=== PATIENT | female | born 1935 | race Caucasian/White ===

== ENCOUNTER 2016-11-02 18:19 | Inpatient (IN) | payer OTHER ==
[2016-11-02] MEDS ORDERED: ASPIRIN PO STA (18:31)
[2016-11-02] MEDS ORDERED: NITROGLYCERIN SL PRN (18:31)
[2016-11-02] MEDS ORDERED: CARDIZEM IV ONE (19:19)
--- NOTE | 2016-11-02 19:25 | PROVIDER DOCUMENTATION ---
Addendum entered and electronically signed by Gaye Ervin Scribe 11/02/16 23: 12: EKG Interpretation - EKG Time of EKG reading by physician:: 22:08 EKG Read and Signed by:: Michael Nunez EKG Interpretation (*Must complete 3 of following elements*): Abnormal Rate: 136 Rhythm: [place] fibrillation with RVR Original Note: HPI-Chest Pain - General Chief Complaint: Chest Pain Stated Complaint: DIZZY, WEAK, CP, SLIGHT EDEMA IN HANDS Time Seen by Provider: 11/02/16 18:31 Source: patient Allergies/Adverse Reactions: Patient Allergies Allergy/AdvReac Type Severity Reaction Status Date / Time No Known Allergies Allergy Verified 12/06/15 14:58 Home Medications: Home Medication List Medication Instructions Recorded Confirmed Last Taken Type Hydrocodone/Acetaminophen [[place] 1 each PO PRN PRN 09/27/15 11/02/16 11/02/16 15 :00 History 10-325 Tablet] Levothyroxine [Synthroid] 0.1 mg PO DAILY 09/27/15 11/02/16 11/02/16 08:00 History Metoprolol [Lopressor] 50 mg PO QAM 09/27/15 11/02/16 11/02/16 08:00 History Mirtazapine [Remeron] 15 mg PO QAM 09/27/15 11/02/16 11/02/16 08:00 History Furosemide [Lasix] 40 mg PO QAM 11/02/16 11/02/16 11/02/16 08:00 History LISINOpril [Prinivil] 5 mg PO QAM 11/02/16 11/02/16 11/02/16 08:00 History - History of Present Illness-CP Location: reports: substernal Chest Pain Radiation: reports: no radiation Quality of Pain: reports: aching Severity in ED: mild Onset/Duration: 3 days ago Timing: intermittent Context/Activities at Onset: reports: none Modifying Factors: improves with: nothing Associated Symptoms: reports: dizziness Aspirin Treatment Today: 325 mg x 1 Similar Symptoms Previously?: No Recently Seen Here or By Another Healthcare Provider: No Review of Systems - Adult - REVIEW OF SYSTEMS - ADULT Constitutional: denies: chills, fever Eyes: reports: no symptoms reported Ears, Nose, Mouth & Throat: reports: no symptoms reported Cardiovascular: reports: chest pain. denies: palpitations Respiratory: denies: cough, shortness of breath Gastrointestinal: denies: abdominal pain, nausea, vomiting Genitourinary: reports: no symptoms reported Musculoskeletal: reports: no symptoms reported Integumentary: reports: no symptoms reported Neurological: reports: dizziness/vertigo. denies: headache/migraines Psychiatric: reports: no symptoms reported Endocrine: reports: no symptoms reported Hematologic/Lymphatic: reports: no symptoms reported Allergic/Immunologic: reports: no symptoms reported All Other Systems: Reviewed and Negative Past History - Adult - PAST MEDICAL HISTORY-ADULT Review of Records: reports: Nursing Assessment Review, Medications Reviewed Major Childhood Illnesses: reports: denies history Cardiovascular: reports: HTN Respiratory: reports: denies history Gastrointestinal: reports: denies history Obstetrical/Gynecological: reports: denies history Genitourinary: reports: denies history Musculoskeletal: reports: chronic pain Neurological: reports: Alzheimer's, dementia Endocrine/Immune: reports: denies history Other Conditions: reports: denies history - PRIOR SURGERIES/PROCEDURES Surgical/Procedure History: reports: none - IMMUNIZATION STATUS Childhood Immunizations: See Nurse Assessment Flu Vaccine: See Nurse Assessment Physical Exam-General - PHYSICAL EXAM-ADULT Initial Vital Signs Reviewed: Yes - CONSTITUTIONAL General Appearance: appears well, alert, no apparent distress - RESPIRATORY Respiratory: chest non-tender, lungs clear, normal breath sounds - CARDIOVASCULAR Cardiovascular: normal peripheral pulses, no edema, tachycardia - MUSCULOSKELETAL Extremity: normal inspection - SKIN Integumentary: normal color, normal turgor, warm/dry - PSYCHIATRIC Psych/Mental Status: normal mood/affect, normal thought content, normal thought process, oriented x 3 Progress - PLAN OF CARE/RESULTS Progress/Plan/Lab Results: plan of care: imaging, labs, medications, EKG Laboratory Tests 11/02/16 11/02/16 11/02/16 19:30 19:30 19:30 WBC 21.25 H RBC 3.89 L Hgb 12.8 Hct 37.3 MCV 95.9 MCH 32.9 H MCHC 34.3 RDW Std Deviation 14.4 Plt Count 244 MPV 9.5 Immature Gran % (Auto) 0.8 H Neut % (Auto) 88.0 H Lymph % (Auto) 3.8 L [place] % (Auto) 7.2 Eos % (Auto) 0.0 Baso % (Auto) 0.2 Immature Gran # (Auto) 0.18 H Neut # (Auto) 18.67 H Lymph # (Auto) 0.80 L [place] # (Auto) 1.54 H Eos # (Auto) 0.01 Baso # (Auto) 0.05 PT INR PTT (Actin FS) Sodium 124 L Potassium 4.2 Chloride 84 L Carbon Dioxide 22 L Anion Gap 18 BUN 50 H Creatinine 3.6 H Estimated GFR/1.73 m2 12 BUN/Creatinine Ratio 14 Glucose 139 H Calculated Osmolality 265 Calcium 7.9 L Magnesium 2.1 Total Bilirubin 0.71 AST 20 ALT 15 Alkaline Phosphatase 84 Creatine Kinase 131 Troponin T Dtb-P-Wqwzlstgsap Pept 80262 H Total Protein 6.3 Albumin 3.1 L Globulin 3.2 Albumin/Globulin Ratio 1.0 11/02/16 11/02/16 19:30 19:30 WBC RBC Hgb Hct MCV MCH MCHC RDW Std Deviation Plt Count MPV Immature Gran % (Auto) Neut % (Auto) Lymph % (Auto) [place] % (Auto) Eos % (Auto) Baso % (Auto) Immature Gran # (Auto) Neut # (Auto) Lymph # (Auto) [place] # (Auto) Eos # (Auto) Baso # (Auto) PT 11.2 INR 1.06 PTT (Actin FS) 33.1 Sodium Potassium Chloride Carbon Dioxide Anion Gap BUN Creatinine Estimated GFR/1.73 m2 BUN/Creatinine Ratio Glucose Calculated Osmolality Calcium Magnesium Total Bilirubin AST ALT Alkaline Phosphatase Creatine Kinase Troponin T 0.044 Uwn-K-Vmdufxxjhhi Pept Total Protein Albumin Globulin Albumin/Globulin Ratio Orders Category Date Time Status Cardiac Monitoring DIRECTED Care 11/02/16 18:32 Active Saline Loc NOW Care 11/02/16 18:32 Active CHEST-2 VIEWS [RAD] Stat Exams 11/02/16 18:32 Taken CBC WITH ELECTRONIC DIFF [HEME] Stat Lab 11/02/16 19:30 Completed CK PROFILE [SP CHEM] Stat Lab 11/02/16 19:30 Completed COMPREHENSIVE METABOLIC PANEL [CHEM] Stat Lab 11/02/16 19:30 Completed MAGNESIUM [CHEM] Stat Lab 11/02/16 19:30 Completed PRO B-NATRIURETIC PEPTIDE Stat Lab 11/02/16 19:30 Completed PROTIME WITH INR [COAG] Stat Lab 11/02/16 19:30 Completed PTT [COAG] Stat Lab 11/02/16 19:30 Completed TROPONIN T Stat Lab 11/02/16 19:30 Completed Aspirin Med 11/02/16 18:31 Discontinued 325 mg PO STAT STA Diltiazem [Cardizem] Med 11/02/16 19:19 Discontinued 20 mg IV NOW ONE Nitroglycerin Sl [Nitroglycerin] Med 11/02/16 18:31 Active 0.4 mg SL Q5M PRN PRN EKG [EKG] Stat Ther 11/02/16 18:22 Ordered EKG [EKG] Stat Ther 11/02/16 19:34 Ordered Vital Signs - 24 hr 11/02/16 11/02/16 11/02/16 19:10 19:33 20:07 Temperature 97.4 F L Pulse Rate 151 H 85 90 Respiratory 20 16 20 Rate Blood Pressure 131/92 102/73 99/72 O2 Sat by Pulse 93 L 94 L Oximetry 11/02/16 20:43 Temperature Pulse Rate 90 Respiratory 20 Rate Blood Pressure 108/77 O2 Sat by Pulse 96 Oximetry Pt/family given results. Pt will be admitted to the hospitalist group. PT/ Family in agreement with plan of care. - EKG 1 Time of EKG reading by physician:: 19:13 EKG Read and Signed by:: Michael Nunez EKG Interpretation (*Must complete 3 of following elements*): Abnormal Rate: 142 Rhythm: atrial fibrillation with RVR [place]: left 2 Time of EKG reading by physician:: 19:38 EKG Read and Signed by:: Michael Nunez EKG Interpretation (*Must complete 3 of following elements*): Abnormal Rate: 86 Rhythm: atrial fibrillation [place]: left - CONSULTS/PCP/HOSPITALIST Notification #1 *Consult/PCP/Hospitalist*: Dr. De Leon-hospitalist Time Discussed: 20:31 Consult Disposition: Will see in ED, Admit Departure - Departure Time of Disposition Order: 20:52 DIAGNOSIS: Weakness, Dehydration, Renal insufficiency A-fib Qualifiers: Atrial fibrillation type: unspecified Qualified Code(s): I48.91 - Unspecified atrial fibrillation Disposition: ADMITTED INPATIENT 09 Certified Medical Emergency: Emergent Condition: Stable Referrals: Dagoberto Huerta MD [Primary Care Provider] - Attestation - Scribe Verification/Attestation Scribe:: Gaye Ervin Acting as Scribe for:: Michael Nunez Scribe documention review:: This chart was documented by a scribe and accurately reflects the service the provider performed and the decisions made by the provider. Physician Attestation - Physician Attestation I, the provider, attest to the following statement:: Michael Nunez Physician documentation Attestation:: This documentation recorded by the scribe accurately reflects the service I personally performed and the decisions made by me.
[2016-11-02 19:39] LABS: BASO% 0.2 % (0.0-0.8); EOS# 0.01 X1000 (0.0-0.7); HEMATOCRIT 37.3 % (37.0-47.0); HEMOGLOBIN 12.8 g/dL (12.0-16.0); IMM GRAN# 0.18 X1000 (0.0-0.04); IMM GRAN% 0.8 % (0.0-0.5); LYMPH% 3.8 % (20.5-51.1); MANUAL DIFF NEEDED? NO; MCH 32.9 PG (27-31); MCHC 34.3 g/dL (33-37); MCV 95.9 FL (81-99); MONO# 1.54 X1000 (0.11-0.59); MONO% 7.2 % (1.7-9.3); MPV 9.5 FL (7.4-10.4); PLT 244 X1000 (130-400); RBC 3.89 XMIL (4.2-5.4)
[2016-11-02 19:46] LABS: INR 1.06; PROTIME 11.2 Seconds (9.2-11.7); PTT 33.1 Seconds (22.0-36.0)
[2016-11-02 20:03] LABS: ALBUMIN 3.1 g/dL (3.5-5.0); CALCIUM 7.9 mg/dL (8.8-10.2); MAGNESIUM 2.1 mg/dL (1.5-2.7); POTASSIUM 4.2 mmol/L (3.5-5.1); TOTAL BILIRUBIN 0.71 mg/dL (0.20-1.00); TOTAL PROTEIN 6.3 g/dL (6.3-8.3)
[2016-11-02] MEDS ORDERED: ROCEPHIN 1 GM/NS 50 ML IV SCH (21:45)
[2016-11-02] MEDS ORDERED: LASIX IV SCH (21:45)
[2016-11-02] MEDS ORDERED: THIAMINE 100 MG in NS 50 ML IV ONE (21:58)
--- NOTE | 2016-11-02 21:59 | HISTORY AND PHYSICAL ---
PRIMARY CARE PROVIDER: Dr. Dagoberto Huerta. CHIEF COMPLAINT: Heart racing and shortness of breath. HISTORY OF PRESENTING ILLNESS: An 81-year-old female with a history of congestive heart failure, hypertension and dementia who was brought to the emergency department due to patient having more shortness of breath and heart racing. The patient was seen in the ER. She was found to be in atrial fibrillation with RVR. She was given IV Cardizem and the rate decreased. She seemed to somewhat improve, her shortness of breath was better. At time my examination she denied having any headache, visual changes, fevers, chills, nausea, vomiting, diarrhea, hemoptysis, melena, but complained of some chest discomfort, shortness of breath and not feeling well. PAST MEDICAL HISTORY: Include congestive heart failure, hypertension, hyperlipidemia, dementia. PAST SURGICAL HISTORY: Hysterectomy, appendectomy. ALLERGIES: No known drug allergies. CURRENT MEDICATIONS: As in the MAR. SOCIAL HISTORY: She is a former smoker. Admits to alcohol use nightly mostly mixed drinks. Denies any illicit drug use. She is . Lives with her spouse. FAMILY HISTORY: No history of coronary disease. REVIEW OF SYSTEMS: Twelve point review of systems is as in HPI. Other systems negative. PHYSICAL EXAMINATION: GENERAL: Cooperative, friendly female. She is resting more comfortably now. VITAL SIGNS: Temperature 97.4 degrees, pulse 151, respiration 20, blood pressure 131/92, saturating 92%. HEENT: Atraumatic, normocephalic. Extraocular movements intact. PERRLA. NECK: No masses. CHEST: Bibasilar rales. CARDIOVASCULAR: Tachycardic and irregular. ABDOMEN: Soft. Positive bowel sounds. EXTREMITIES: Trace edema. NEURO: She is awake, alert, oriented x2. : No bladder distention. SKIN: Warm. LABORATORIES AND STUDIES: WBCs 21.25, hemoglobin 12.8, hematocrit 37.3, platelets 244,000. Sodium 124, potassium 4.2, chloride 84, CO2 is 22, BUN is 50, creatinine 3.6, glucose is 139, Pro- BNP is 26,384. ASSESSMENT: A 81-year-old female with a history of congestive heart failure, hypertension and dementia was brought to the emergency department due to worsening shortness of breath. She was evaluated in the ER, she was found to be in atrial fibrillation with RVR. She was given IV Cardizem and her rate had improved. Patient will need hospitalization for further management . 1. Atrial fibrillation with rapid ventricular response. 2. Acute congestive heart failure exacerbation unspecified. 3. Leukocytosis. 4. Chronic alcoholism. 5. Hyponatremia. 6. Acute renal failure. PLAN: 1. We will admit patient to [facility]. 2. Continue monitor patient on telemetry. Check echocardiogram and consult Cardiology. 3. May need to restart patient on Cardizem drip if rates not controlled. 4. Continue with gentle diuresis and check echocardiogram. 5. Check blood cultures. Start patient on IV antibiotics. 6. Give patient a banana bag slowly. 7. Monitor electrolytes. 8. We will monitor renal function. 9. Put patient on DVT prophylaxis with SCD and heparin. 10. We will continue to follow and reassess.
[2016-11-02] MEDS: CARDIZEM 100 MG/NS 100 ML IV SCH ×2 (22:19→23:20)
--- NOTE | 2016-11-03 01:00 | Diag Imaging Result Document ---
PROCEDURE NAME: CHEST-2 VIEWS - 11/02/2016 PA AND LATERAL RADIOGRAPH OF THE CHEST: COMPARISON: 12/06/2015. FINDINGS: There is stable eventration of the right hemidiaphragm. There is stable mild atelectasis versus scarring at the right lung base. There is stable mild scarring at the left mid lung zone. The lungs are clear otherwise. There is no definite pleural fluid collection. Cardiac silhouette is grossly unremarkable. IMPRESSION: Stable right basilar scarring and/or atelectasis and stable mild left mid lung zone scarring.
[2016-11-03 05:01] LABS: BASO% 0.1 % (0.0-0.8); EOS# 0.03 X1000 (0.0-0.7); EOS% 0.2 % (0.0-10.0); HEMATOCRIT 33.4 % (37.0-47.0); HEMOGLOBIN 11.5 g/dL (12.0-16.0); IMM GRAN# 0.11 X1000 (0.0-0.04); IMM GRAN% 0.7 % (0.0-0.5); LYMPH# 0.54 X1000 (1.2-3.4); LYMPH% 3.7 % (20.5-51.1); MANUAL DIFF NEEDED? YES; MCH 32.9 PG (27-31); MCHC 34.4 g/dL (33-37); MCV 95.4 FL (81-99); MONO# 1.04 X1000 (0.11-0.59); MONO% 7.1 % (1.7-9.3); MPV 9.6 FL (7.4-10.4); NEUT% 88.2 % (42.2-75.2); PLT 202 X1000 (130-400)
[2016-11-03 05:24] LABS: BANDS 6 % (0-1); LYMPHS 4 % (21-51); MONO 6 % (1-9)
[2016-11-03 05:35] LABS: CALCIUM 7.1 mg/dL (8.8-10.2); POTASSIUM 3.4 mmol/L (3.5-5.1)
[2016-11-03] MEDS: CARDIZEM 100 MG/NS 100 ML IV SCH ×4 (06:17→17:39)
[2016-11-03] MEDS ORDERED: CARDIZEM PO SCH (08:00)
[2016-11-03] MEDS: SYNTHROID PO SCH (08:50)
[2016-11-03] MEDS: LOPRESSOR PO SCH (08:50)
[2016-11-03] MEDS: HEPARIN SUBQ SCH ×2 (09:00→21:44)
[2016-11-03] MEDS ORDERED: REMERON PO SCH (09:00)
[2016-11-03] MEDS ORDERED: NS 500 ML ONE (09:47)
[2016-11-03] MEDS ORDERED: NS 1,000 ML ONE (11:29)
[2016-11-03] MEDS: NS 1,000 ML IV SCH (12:45)
--- NOTE | 2016-11-03 14:51 | PROGRESS NOTE ---
DATE: 11/03/2016 SUBJECTIVE: The patient is doing fine. Denies any chest pain, any difficulty in breathing, or palpitations. OBJECTIVE: Vital Signs: Temperature 98.5 degrees, heart rate 68, respiratory 14, blood pressure 102/61, O2 saturation 93% 2 L nasal cannula. General Examination: This is an 81-year-old, female lying in bed, in no acute distress. HEENT: Head is normocephalic, atraumatic. Anicteric sclerae and pale conjunctivae. Mucous membranes dry. Neck: Supple. No JVD noted. No carotid bruits. No lymphadenopathy. No thyromegaly. Cardiovascular: S1, S2 heard. Irregularly irregular. No murmurs, gallops, or rubs. Respiratory: Clear bilaterally to auscultation. No work of breathing or using accessory muscles. Abdomen: Soft. Nontender to palpation. Bowel sounds present. No organomegaly. Extremities: No clubbing, cyanosis, or edema. Peripheral pulses present in both legs. Neurological: Patient is alert and oriented x3. Able to move 4 extremities. Cranial nerves 2 through 12 grossly normal. LABORATORY DATA: White cell count 14.68, hemoglobin 11.5, hematocrit 33.4, platelets 202,000. Sodium 136, potassium 3.4, chloride 91, bicarbonate 21, BUN 51, creatinine 3.1. ASSESSMENT: 1. Atrial fibrillation with rapid ventricular response. 2. Acute kidney injury. 3. Congestive heart failure. 4. Leukocytosis. 5. Chronic alcoholism. 6. Hyponatremia. PLAN: The patient was admitted to the hospital because of shortness of breath and she was found to be in atrial fibrillation with RVR. Patient has been started on Cardizem drip and also we changed it to oral this morning. The patient she requires to be on that medication. The patient is going to be sent to [facility]. Cardiology has been consulted. An echo has been ordered. At this point, if they are planning to do any procedure like cardioversion today. In any case, we will put this patient on NPO since midnight. Also for acute kidney injury, her granddaughter who is a nurse reported that she was checked at her primary care's office a few months ago and the renal function was completely okay so we assume this problem is acute renal failure. Even though this patient has a history of congestive heart failure, we prefer to start gentle hydration with normal saline at 70 mL/hours and we are going to check definitely BMP daily. Actually today there was improvement of creatinine from 3.6 to 3.1. We will continue checking CMP daily. For CHF, I guess this condition is stable. I know that the proBNP is elevated but considering that this patient has renal dysfunction I do not know how accurate that number is. In any case, physical examination did not disclose volume overload because I did not find any lower extremity edema or crackles on physical examination. At this time we are going to hold any Lasix right now. Considering that she is requiring 2 L of oxygen by nasal cannula, we will continue with the same management. For hyponatremia, I expect better sodium with this normal saline. For leukocytosis, we have checked an x-ray which basically shows stable right basilar scarring or atelectasis but did not describe any infiltrate or pneumonia. Also the urine has not be checked. We are going to check that. She is not on any antibiotics right now and we are going to keep an eye on that.
[2016-11-03] MEDS: ZOSYN 2.25 GM/NS 50 ML IV SCH ×2 (15:49→21:43)
[2016-11-03 16:19] LABS: URINE SOURCE CLEAN CATCH
[2016-11-03 16:25] LABS: BILIRUBIN URINE NEGATIVE (NEGATIVE); BLOOD URINE MODERATE (NEGATIVE); GLUCOSE URINE NEGATIVE (NEGATIVE); LEUKOCYTES URINE LARGE (NEGATIVE); NITRITE URINE NEGATIVE (NEGATIVE); PROTEIN URINE 100 mg/dL (NEGATIVE); SP GRAVITY URINE 1.013; TURBIDITY URINE TURBID (CLEAR); UROBILINOGEN URINE NORMAL (NORMAL)
[2016-11-03 16:26] LABS: URINE MICRO REVIEW NEEDED? YES
[2016-11-03 16:30] LABS: UR EPITHELIAL CELLS <10 /HPF (<10); URINE BACTERIA 4+ /HPF; URINE CULTURE NEEDED? YES; URINE WBC TNTC /HPF (<10)
[2016-11-03 16:37] LABS: URINE CASTS GRANULAR PRESENT; URINE CRYSTALS NONE SEEN; URINE SMALL ROUND CELLS RENAL PRESENT
[2016-11-03 16:38] LABS: COLOR YELLOW
[2016-11-03] MEDS: REMERON PO SCH (21:44)
[2016-11-04] MEDS: NS 1,000 ML IV SCH ×2 (03:18→16:36)
[2016-11-04] MEDS: ZOSYN 2.25 GM/NS 50 ML IV SCH ×4 (03:18→21:13)
[2016-11-04] MEDS: CARDIZEM 100 MG/NS 100 ML IV SCH ×2 (05:46→11:21)
[2016-11-04 05:53] LABS: BASO% 0.1 % (0.0-0.8); EOS# 0.02 X1000 (0.0-0.7); EOS% 0.1 % (0.0-10.0); HEMATOCRIT 35.4 % (37.0-47.0); HEMOGLOBIN 12.1 g/dL (12.0-16.0); IMM GRAN# 0.17 X1000 (0.0-0.04); IMM GRAN% 1.1 % (0.0-0.5); LYMPH# 0.66 X1000 (1.2-3.4); LYMPH% 4.3 % (20.5-51.1); MANUAL DIFF NEEDED? YES; MCH 32.5 PG (27-31); MCHC 34.2 g/dL (33-37); MCV 95.2 FL (81-99); MONO# 1.15 X1000 (0.11-0.59); MONO% 7.6 % (1.7-9.3); MPV 9.7 FL (7.4-10.4); NEUT% 86.8 % (42.2-75.2); PLT 232 X1000 (130-400); RBC 3.72 XMIL (4.2-5.4)
[2016-11-04 06:00] LABS: CALCIUM 7.6 mg/dL (8.8-10.2)
[2016-11-04 06:01] LABS: BANDS 4 % (0-1); LYMPHS 4 % (21-51); MONO 6 % (1-9)
[2016-11-04] MEDS: SYNTHROID PO SCH (06:22)
--- NOTE | 2016-11-04 06:40 | EKG Report ---
Test Performed on : 11/02/2016 10:08:37 PM Test Reason : RYTHEM CHANGE Blood Pressure : / mmHG Vent. Rate : 136 BPM Atrial Rate : 153 BPM P-R Int : 000 ms QRS Dur : 100 ms QT Int : 334 ms P-R-T Axes : 000 -38 063 degrees QTc Int : 502 ms Atrial fibrillation. with rapid ventricular response. Left axis deviation T wave abnormality, consider inferior ischemia Abnormal ECG When compared with ECG of 02-NOV-2016 19:38, (Unconfirmed) Vent. rate has increased BY 50 BPM T wave inversion now evident in Inferior leads Unconfirmed Result
[2016-11-04] MEDS: MORPHINE IV PRN ×3 (08:17→21:14)
[2016-11-04] MEDS: LOPRESSOR PO SCH (08:17)
[2016-11-04] MEDS: HEPARIN SUBQ SCH ×2 (08:17→21:13)
--- NOTE | 2016-11-04 11:53 | PROGRESS NOTE ---
DATE: 11/04/2016 SUBJECTIVE: The patient is doing fine, although she complains of general malaise. No chest pain. No fever or chills. OBJECTIVE: Vital Signs: Temperature 97.4 degrees, heart rate 98, respiratory rate 14, blood pressure 92/56, O2 saturation 99% on 2 L nasal cannula. General examination: This is an 81- year-old female lying in bed, in no acute distress. HEENT: Head is normocephalic, atraumatic. Anicteric sclerae. Pale conjunctivae. Mucous membranes moist. Neck: Supple. No JVD noted. No carotid bruits. No lymphadenopathy. No thyromegaly. Cardiovascular: S1, S2 heard. Irregularly irregular but no murmurs, gallops, or rubs. Respiratory: Clear bilaterally to auscultation. No work of breathing or using accessory muscles. Abdomen: Soft. Nontender to palpation. Bowel sounds present. No organomegaly. Extremities: No clubbing, cyanosis, or edema. Peripheral pulses present in both legs. Neurological: Patient is alert and oriented x3. Able to move 4 extremities. Cranial nerves 2 through 12 grossly normal. LABORATORY DATA: White cell count 15.21, hemoglobin 12.1, hematocrit 35.4, platelets 232,000. Sodium 136, potassium 3.0, chloride 89, bicarbonate 21, BUN 51, creatinine 3.6. ASSESSMENT: 1. Atrial fibrillation with rapid ventricular response. 2. Acute kidney injury. 3. Urinary tract infection. 4. Gram-negative rods bacteremia. 5. Leukocytosis. 6. Hyponatremia. 7. Chronic alcoholism. PLAN: Patient was admitted to the hospital because she was not feeling good and she was found to be in atrial fibrillation with RVR. Right now she is in the [facility] with a Cardizem drip. Cardiology has been consulted but they have not seen her yet. Will see if they are planning to do a cardioversion or not. She is not on anticoagulation, just on DVT prophylaxis. Also something for this patient is this acute kidney injury. As per daughter who is a nurse, she was checked a few months ago and the renal function was okay. In any case, we have consulted Dr. Estrada from nephrology and we will see what he has to say. For UTI, we know that this patient has dirty urine and the blood cultures are showing gram-negative rods. So she was started on Zosyn and we will wait for the results of the final cultures. For hyponatremia, patient is receiving IV fluids but it seems like it is not helping very much. We will continue checking BMP daily. [email or web address]
--- NOTE | 2016-11-04 14:11 | CONSULTATION ---
DATE OF CONSULTATION: 11/04/2016 REQUESTING PHYSICIAN: Hospitalist Service REASON FOR CONSULTATION: Shortness of breath, palpitations. HISTORY OF PRESENT ILLNESS: Ms. Saenz is an 81-year-old female. The patient presented to the hospital for evaluation on 11/02/2016 at about 6:30 p.m. because she had not been feeling well for 2 days. The patient had complained of increasing fatigue, weakness and profuse diaphoresis with vague chest discomfort. The patient apparently had to attend her grandson's wedding on Friday, and right after the wedding, she was sweating profusely and was so seemingly ill that the granddaughter recommended bring her to the hospital. In the ER, they did a chest x-ray that shows right basilar scarring and/or atelectasis and stable left midlung zone scarring. The patient received blood work that showed a white count of 21,250, hemoglobin 12.8. Sodium was 124, potassium 4.2, BUN was 50, creatinine 3.6. The patient received urine and blood cultures. The urine culture is growing gram- negative beck. The blood culture is also growing gram-negative rods. The patient appears to have septicemia. She has been placed on broad spectrum antibiotics including piperacillin/tazobactam (Zosyn) every 6 hours. She was found in atrial fibrillation with a rapid response, and they have initiated IV Cardizem. The patient is still going somewhat fast, but she is feeling much better. We are seeing her on 11/04/2016. She is not having any chest pain right now. She is having some difficulty swallowing. This appears to be new. She has some discomfort when swallowing. PAST MEDICAL HISTORY: Positive for hypertension. She has been diagnosed with congestive heart failure in the past. She was seen at this hospital back in 11/2015. At that time, she received an echocardiogram which I read, and it showed mildly decreased ejection fraction in the order of 50% with segmental wall motion abnormalities suggesting coronary artery disease. She had pulmonary hypertension. At that time, her electrocardiogram showed sinus rhythm with no acute abnormalities. She did seem to have a pattern of left anterior fascicular block, possible old inferior scar or septal scar. She has been a smoker in the past. PAST SURGICAL HISTORY: She has had hysterectomy, appendectomy, bladder suspension. She has had biopsy of lymph node from the left side of the neck. She has complained of chronic back pains and neck pains. 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 SOCIAL HISTORY: She is to her second for 10 to 15 years. She is retired, lives at home. She has been a tobacco user in the past. She does drink 2 mixed drinks every day. FAMILY HISTORY: Noncontributory. ALLERGIES: Negative. HOME MEDICATIONS: At the time of this admission included mirtazapine 15 mg at bedtime, metoprolol 50 every day, Synthroid 0.1 mg daily, lisinopril 5 mg daily, hydrocodone daily, furosemide 40 mg daily. REVIEW OF SYSTEMS: Really noncontributory other than the patient's short-term memory is deteriorating lately. She has not had any other major issues. She does not recall having any previous serious heart condition in the past. PHYSICAL EXAMINATION: Blood pressure is 122/73, pulse 131, temperature 98.6, respirations 20. She is awake, alert, follows commands. She appears to be oriented. HEENT is unremarkable. Chest shows some crepitans. Heart sounds are irregularly irregular, distant. Abdomen is nontender. No masses or hepatomegaly. Extremities showed decreased pulses. There is no peripheral edema. Neurologic: She moves all 4 extremities and follows commands. She is cooperative. DIAGNOSTIC DATA: Her telemetry right now shows atrial fibrillation with a rapid response. Today, white count is 15,210, hemoglobin is 12.1. Sodium is 126, potassium 4.0, BUN is 51, creatinine 3.6. Her C-reactive protein is 158.87 which is high, and sedimentation rate is 64, indicating some acute inflammatory process. IMPRESSION: 1. The patient presented with what appears to be a septicemia, probably arising from urinary source. Gram-negative rods are growing in the urine and in the blood. 2. Atrial fibrillation with rapid ventricular response. This is probably secondary to the metabolic stress. 3. Congestive heart failure which is probably acute diastolic on top of mild degree of chronic systolic left ventricular dysfunction. 4. Atypical chest discomfort, probably chest wall pain. 5. Hyponatremia. 6. Acute renal insufficiency. RECOMMENDATIONS: In addition to checking the acute inflammatory markers which we have done, we will keep her on Cardizem and beta blockers to control her heart rate. The septicemia needs to be managed by the primary service, and Nephrology has been consulted to address the issues of acute renal dysfunction. We will review the echocardiogram that was done today, and we will furnish additional advice. Thank you for the opportunity to participate in her evaluation.
[2016-11-04 14:39] LABS: URINE MICRO REVIEW NEEDED? NO; URINE SOURCE CATH
[2016-11-04 14:41] LABS: BILIRUBIN URINE NEGATIVE (NEGATIVE); BLOOD URINE MODERATE (NEGATIVE); COLOR YELLOW; GLUCOSE URINE NEGATIVE (NEGATIVE); LEUKOCYTES URINE LARGE (NEGATIVE); NITRITE URINE NEGATIVE (NEGATIVE); PROTEIN URINE 70 mg/dL (NEGATIVE); SP GRAVITY URINE 1.013; TURBIDITY URINE HAZY (CLEAR); UR EPITHELIAL CELLS <10 /HPF (<10); URINE BACTERIA NEGATIVE /HPF; URINE CULTURE NEEDED? YES; URINE RBC <10 /HPF (<10); URINE WBC TNTC /HPF (<10); UROBILINOGEN URINE NORMAL (NORMAL)
[2016-11-04 14:45] LABS: UR CREAT RANDOM 76.2 mg/dL (11-20); UR PROT RANDOM 74.5 mg/dL
--- NOTE | 2016-11-04 15:33 | ECHO REPORT ---
ORDER DATE: 11/03/2016 ECHOCARDIOGRAPHIC MEASUREMENTS: 1. Interventricular septum 1.1. Left ventricular posterior wall 1.1. Diastolic diameter 4.2. Left atrium 3.6. Aorta 3.0. 2. Normal left ventricular cavity size. Estimated ejection fraction of 45-50%. Atrial fibrillation was noted. Aortic valve leaflets are sclerosed. 3. Mitral valve was normal. Tricuspid valve was normal. Pulmonic valve was normal. 4. Peak velocity across aortic valve less than 2 m/sec. There is no aortic stenosis. There is trace aortic regurgitation. There is mild regurgitation. Peak velocity across tricuspid valve was 2.5 m/sec. 5. There is mild mitral regurgitation . 6. There is no pericardial effusion or obvious intracardiac mass or thrombus.
--- NOTE | 2016-11-04 16:52 | Diag Imaging Result Document ---
PROCEDURE NAME: US RENAL 2 (RETROPER) COMPLETE - 11/04/2016 RENAL ULTRASOUND: COMPARISON: None available. FINDINGS: The kidneys are grossly normal in echotexture with the right kidney measuring 8.5 cm and the left kidney measuring 10.6 cm in the greatest longitudinal axes. The right renal cortex measures up to 1 cm and the left renal cortex measures up to 1.3 cm in thickness. The urinary bladder is grossly unremarkable. IMPRESSION: Grossly unremarkable renal ultrasound.
[2016-11-04] MEDS: MUCINEX PO SCH (21:13)
[2016-11-04] MEDS: REMERON PO SCH (21:13)
--- NOTE | 2016-11-04 23:00 | CONSULTATION ---
DATE OF CONSULTATION: 11/04/2016 CONCLUSION: The patient has urosepsis as manifested by a positive blood cultures for gram negative rods in both the blood and the urine. She also has end-stage renal disease. RECOMMENDATIONS: I agree with the decision to treat the patient with Zosyn and to decrease the dose because of the patient's end-stage renal disease. It is my understanding the patient had a renal ultrasound today so that we can look to see if there is any obstruction to the kidneys and if there could be an abscess present in the kidneys or some other abnormality. Once the patient's Valdez catheter is out I would like to check her for a postvoid residual urine to make sure that she is emptying her bladder fully. If she is not emptying her bladder fully then she may be a candidate for intermittent catheterization or possibly some medication trial to see if they can increase her urination. The other treatment that could be done with the hope of trying to prevent urinary tract infections would be application of vaginal estrogen cream on a regular basis. DISCUSSION: The patient has dementia. She really was unable to provide a history. Most of it was taken from her granddaughter. Approximately 3-4 days ago the patient developed dyspnea, diaphoresis, weakness, anorexia, altered mental status, dysuria, urinary frequency and back and flank pain. She was admitted to the hospital. Here her CBC shows a white count of 15,210, hemoglobin is 12.1, platelet count is 232,000. Creatinine is 3.6. GFR is 12. Both blood and urine are growing gram negative rods as mentioned above, the chest x-ray shows stable bilateral scarring of the lungs. Renal ultrasound is pending. PAST MEDICAL HISTORY/REVIEW OF SYSTEMS: Central nervous system: Patient has dementia. She does not have paresis or seizures. Neck: No stiffness. Endocrine: Patient has thyroid disease but not diabetes. Bones, joints, muscles: She does not complain much of joint pain or muscle aches. Cardiac: She has atrial fibrillation now but she was not complaining of chest pain or palpitations. GI: She has a decrease in her appetite. She has not complained of abdominal pain or diarrhea. Genitourinary: She was going frequently and had back and flank pain. Neurologic: Patient had an altered mental status but now she is more alert and carries on coherent conversation. She does have a decrease in her memory though secondary to her dementia. The remainder of the review of systems was completed and was negative. CHILD CARE SPECIALIST HISTORY: She is a 3, para 3, AB 0. She has had a hysterectomy and it is not certain if she had a tubal ligation or not. PREVIOUS HOSPITALIZATIONS AND OPERATION: She has had labor and deliveries, a hysterectomy, possible tubal ligation, previous admission a year ago for urosepsis. She has had lymph node biopsies. MEDICAL DISEASES: Positive for hypertension, dementia, congestive heart failure, hypothyroidism, hyperlipidemia. INFECTIOUS DISEASE HISTORY: Positive for pneumonia, urosepsis approximately a year ago and sinusitis. FAMILY HISTORY: Positive for hypertension and stroke. SOCIAL HISTORY: The patient lives in [place] at the [facility]. She lives in a house boat. She is . She stopped smoking cigarettes about 60 years ago. She occasionally drinks an alcoholic beverage. She does not abuse drugs. ALLERGIES: Her chart lists no known drug allergies. HOME MEDICATIONS: Include she is on Remeron, Lopressor, Synthroid, Prinivil, hydrocodone and Lasix. PHYSICAL EXAMINATION: Vital signs: Temperature is 97.4 degrees, pulse 98, respirations 14, blood pressure 92/56, the patient's weight is listed as 138 pounds. General: This is a chronically ill- appearing, elderly female. She is in no acute distress. Head, eyes, ears, nose, and throat: She can hear my spoken words. She can see near objects. Neck: There was no meningismus. There appeared to be slight increase in the AP diameter of her chest. Lungs: There were scattered rhonchi. Cardiovascular: Heart rate was rapid and irregular. Abdomen: Soft and nontender. Neurologic: The patient was awake. She can move her extremities but was weak. There was no tremor. She had a marked decrease in her memory as regarding her medical illnesses. Integument: No rash noted. Thank you for the consult.
[2016-11-05] MEDS: ZOSYN 2.25 GM/NS 50 ML IV SCH (03:43)
[2016-11-05 05:23] LABS: MANUAL DIFF NEEDED? NO
[2016-11-05 05:28] LABS: BASO% 0.1 % (0.0-0.8); EOS# 0.12 X1000 (0.0-0.7); EOS% 0.8 % (0.0-10.0); HEMATOCRIT 30.6 % (37.0-47.0); HEMOGLOBIN 10.5 g/dL (12.0-16.0); IMM GRAN# 0.17 X1000 (0.0-0.04); IMM GRAN% 1.1 % (0.0-0.5); LYMPH# 0.77 X1000 (1.2-3.4); LYMPH% 5.2 % (20.5-51.1); MCH 32.8 PG (27-31); MCHC 34.3 g/dL (33-37); MCV 95.6 FL (81-99); MONO# 1.35 X1000 (0.11-0.59); MPV 9.6 FL (7.4-10.4); NEUT% 83.8 % (42.2-75.2); PLT 253 X1000 (130-400)
[2016-11-05 05:46] LABS: CALCIUM 7.6 mg/dL (8.8-10.2)
[2016-11-05] MEDS: NS 1,000 ML IV SCH ×2 (05:56→18:43)
[2016-11-05] MEDS: SYNTHROID PO SCH (06:03)
[2016-11-05] MEDS: KEFZOL 1 GM/D5W 50 ML IV SCH ×2 (06:54→18:15)
--- NOTE | 2016-11-05 07:29 | EKG Report ---
Test Performed on : 11/05/2016 06:46:53 AM Test Reason : atrial fibrillation Blood Pressure : / mmHG Vent. Rate : 121 BPM Atrial Rate : 136 BPM P-R Int : 000 ms QRS Dur : 102 ms QT Int : 324 ms P-R-T Axes : 000 -38 023 degrees QTc Int : 460 ms Atrial fibrillation. with rapid ventricular response. Left axis deviation Abnormal ECG When compared with ECG of 05-NOV-2016 06:46, (Unconfirmed) No significant change was found Confirmed by Michel Valdivia MD ([id number]) on 11/06/2016 9:19:23 PM
--- NOTE | 2016-11-05 08:52 | PROGRESS NOTE ---
DATE: 11/05/2016 CHIEF COMPLAINT: Shortness of breath, palpitations. SUBJECTIVE: The patient presented yesterday with increasing fatigue, shortness of breath. Today she is feeling much better. She is not having any pain. Her blood and urine are growing E. coli. This is consistent with a septicemic presentation. Her C-reactive protein was elevated at 158.87. Her sedimentation rate is 64. OBJECTIVE: Vital signs: Blood pressure 104/64, temperature 99.6, pulse 95, respirations 18. General: She is awake, alert, and oriented, in no distress. HEENT: Unremarkable. Chest: Slightly diminished breath sounds bilaterally, occasional rhonchi. Cardiac: Heart sounds are irregularly irregular without gallop or murmur. Abdomen: Nontender, soft, no masses, no hepatomegaly. Extremities: Good pulses, no edema. Neurological: She moves four extremities, follows commands. BLOOD WORK: Sodium 124, potassium 4.0, BUN 49, creatinine 3.5. Albumin is down to 2.0. Phosphorus is 2.4. White count 14,940, hemoglobin 10.5. IMPRESSION: 1. Patient presented to the hospital truly with a picture of septicemia, gram-negative E. coli. 2. Acute renal failure. 3. Paroxysmal atrial fibrillation with rapid response. 4. Congestive heart failure exacerbation. This is mostly diastolic dysfunction on top of mild chronic systolic dysfunction. RECOMMENDATION: Aggressive management of her infection is required. Infectious Disease has been consulted. From cardiology viewpoint, we will continue our present course of action. The patient seems to be improving. We will make further adjustments as we deem appropriate based on her septic condition. Thank you again for the opportunity to participate in her evaluation. Best regards.
[2016-11-05] MEDS: HEPARIN SUBQ SCH ×2 (09:05→21:03)
[2016-11-05] MEDS: LOPRESSOR PO SCH (09:05)
[2016-11-05] MEDS: MUCINEX PO SCH ×2 (09:05→20:51)
[2016-11-05] MEDS: CARDIZEM 100 MG/NS 100 ML IV SCH (09:06)
[2016-11-05] MEDS ORDERED: DULCOLAX PR ONE (09:34)
--- NOTE | 2016-11-05 12:10 | PROGRESS NOTE ---
DATE: 11/05/2016 PRESENT ILLNESS: The patient has an Escherichia coli urinary tract infection and associated bacteremia. MEDICATIONS: The patient currently is on Zosyn. PHYSICAL EXAMINATION: Vital Signs: Temperature is 99.6 degrees, pulse 95, respirations 18, blood pressure 104/64. General: This is an ill-appearing, elderly female. She is in no acute distress. Lungs: Clear to auscultation. Cardiovascular: Heart rate is rapid and irregular. Abdomen and flank: Soft and nontender. Genitalia: Patient has a Valdez catheter in place. LABORATORY AND X-RAY STUDIES: Blood and urine cultures are growing E coli. The CBC for today shows a white count of 14,940, hemoglobin 10.5, and platelet count 253,000. Creatinine is 3.5. The GFR is 12. As mentioned above, the first blood and urine cultures are growing E coli. Repeat blood cultures are pending thus far. ASSESSMENT AND PLAN: Patient has Escherichia coli urinary tract infection and bacteremia. I have changed the patient to Ancef and have reduced the dose of the antibiotic because of the patient's end-stage renal disease. Once the patient's Valdez catheter is removed, I will order a bladder scan on her to see if she is able to empty her bladder well. COMORBIDITIES: The patient's comorbidities: She is elderly. She does have dementia and congestive heart failure.
[2016-11-05] MEDS: MORPHINE IV PRN ×2 (12:53→17:02)
--- NOTE | 2016-11-05 14:46 | PROGRESS NOTE ---
DATE: 11/05/2016 SUBJECTIVE: This patient states that she is doing better. She is not complaining of chest pain or abdominal pain. No shortness of breath. She has been having constipation and generalized weakness. Probably this patient should go to a rehab center. OBJECTIVE: Vital Signs: Temperature 98.5 degrees, pulse 114, respiratory rate 22, blood pressure 111/48, O2 saturation 100% on 2 L of nasal cannula. HEENT: Head normocephalic. No trauma. PERRLA. Neck: Supple. No JVD. No masses. Central trachea. Cardiovascular: Irregularly irregular rate and rhythm. No murmurs. Chest: Clear to auscultation. No wheezing. No rales. Abdomen: Soft, nontender, nondistended. No hepatosplenomegaly. Neurological: The patient is alert and oriented x3. She is able to move all 4 extremities. She has generalized weakness. LABORATORY DATA: WBC 14.9, hemoglobin 10.5, hematocrit 30.6, platelets 253,000. Sodium 124, potassium 4, chloride 92, bicarbonate 19, BUN 49, creatinine 3.5, calcium 7.6, phosphorus 2.4. ASSESSMENT AND PLAN: 1. Atrial fibrillation with rapid ventricular response. Cardiology Department is on board. She is still getting IV Cardizem. She feels better. She is not complaining of chest pain or palpitations at this moment. No shortness of breath. We will continue to monitor. 2. Acute kidney injury. I checked back her creatinine, and on November 2015 the creatinine was between 1.1 and 1.8. Nephrology Department has been consulted. We will wait for their recommendations. 3. Urinary tract infection. We have a positive result for E. coli infection, and the antibiotics have been changed to cefazolin. Infectious Disease Department is following this patient. 4. Hyponatremia. Also I checked back the sodium, and last year in November 2015, this patient had also hyponatremia. The highest value was 127. 5. Leukocytosis. This is getting better. We will continue with the antibiotics. 6. Constipation. We will add Dulcolax at bedtime, and also we ordered today a suppository. 7. Generalized weakness. I requested a physical therapy evaluation, and also request a rehab center placement for this patient who will be charged to the administrator social welfare. 8. Chronic alcoholism. For now, this patient is stable. We will continue to monitor. CRITICAL CARE TIME: 35 minutes.
--- NOTE | 2016-11-05 18:55 | CONSULTATION ---
DATE OF CONSULTATION: 11/05/2016 REASON FOR ADMISSION: Racing heart with increased work of breathing, chest pain on the left. REASON FOR CONSULT: Acute kidney injury on chronic kidney disease. CONSULTING PHYSICIAN: Dr. Jake De Leon. HISTORY OF PRESENT ILLNESS: Ms. Saenz is an 81-year-old white female who has not been seen by our service in the past who presented to [facility] ER with new onset atrial fibrillation with rapid ventricular rate. She had severe shortness of breath. She was started on IV Cardizem which had a rate decrease. She is feeling much better at this time. She denies any chest pain. She remains on O2. No fever or chills. No nausea, vomiting, or diarrhea. No complaints of melena, hematochezia. Patient states that she is actually feeling better though she is confused to most recent events. PAST MEDICAL HISTORY: Confirmed by patient and noted in chart is congestive heart failure, hypertension, hyperlipidemia, noted dementia though patient states forgetfulness. Hypothyroidism. PAST SURGICAL HISTORY: Hysterectomy and appendectomy. SOCIAL HISTORY: She is . She lives with her spouse. She has family who are attentive to her care. She is a former smoker. Admits to a mixed drink nightly. She denies any illicit drug use. FAMILY HISTORY: No coronary or renal disease. CURRENT ALLERGIES: No known drug allergies. HOME MEDICATIONS: Listed as Remeron, Lopressor, [place], Synthroid, Prinivil and Lasix. REVIEW OF SYSTEMS: Times 10 with pertinent positives listed above in the HPI. VITAL SIGNS: Her most recent vital signs, temperature 98.5 degrees, blood pressure 111/48, heart rate 114, respirations 22. She is on 2 L nasal cannula. Last recorded saturation of 100%. She has had 2881 in. She has had 650 mL out per Valdez catheter. LABS: This a.m. sodium 124, potassium 4, chloride 92, CO2 19, BUN 49, creatinine 3.5, glucose 104. Her anion gap is 13. Calcium 7.6, phosphorus 2.4 albumin 2. She has an elevated C-reactive protein of 158.87. Her white count 14.94, hemoglobin 10.5, hematocrit 30.6 with a platelet count of 253,000. Patient has a urinalysis that shows turbid to hazy urine in color, positive for proteinuria, hematuria, leukocytes, WBCs and RBCs are too numerous to count. She has positive granular casts. Patient has a urine culture positive for E. coli. Blood culture is positive for E. coli. Sensitivity is noted. PHYSICAL EXAMINATION: General: This is an 81-year-old white female. She is resting quietly in bed. She is in no acute distress. Skin: Warm and dry. HEENT: Normocephalic , atraumatic. Conjunctiva is pale. She has LYLA. Mucous membranes are dry. Neck: Supple. Trachea midline. No JVD. Cardiovascular: Regular rate and rhythm. No murmur or gallop appreciated. Lungs: Clear to auscultation anteriorly. Equal excursion. Abdomen: Round, soft, nontender. Positive bowel sounds. Extremities: She has 1+ lower extremity edema up into the thigh region. Genitourinary: Valdez catheter is in place with slightly cloudy urine with some sediment. Neurological: Patient is alert to person only. Forgetful to place and events most recent. ASSESSMENT AND PLAN: 1. Acute kidney injury. More than likely, this is acute tubular necrosis secondary to urosepsis. Patient's baseline creatinine is 1.2-1.8. She is above her baseline at this time. We agree with continuing her normal saline at 75 mL an hour. We will check her antibiotics to determine that they are renally dosed. We will check a renal ultrasound and urine electrolytes. 2. Electrolytes. Patient has hyponatremia. She is currently on limited p.o. intake. She has had normal saline infusing. This may be secondary to #1. We will continue to monitor. Agree with continuing normal saline. 3. Acid-base balance. This is stable. 4. Anemia. This remains stable. 5. Acute congestive heart failure with exacerbation. This may be related to her new onset of atrial fibrillation. She is currently being seen by Cardiology and she is being diuresed. I would like to thank you for allowing us to follow with this patient. Seen, data reviewed, discussed with Driss Hankins on 11/05/16. I agree with the above assessment and plan of care. rg Dictated by PORSHA Yousif for Jordan Estrada MD [facility]
[2016-11-05] MEDS: DULCOLAX PO SCH (21:03)
[2016-11-05] MEDS: REMERON PO SCH (21:03)
[2016-11-06] MEDS: CARDIZEM 100 MG/NS 100 ML IV SCH (05:19)
[2016-11-06] MEDS: KEFZOL 1 GM/D5W 50 ML IV SCH ×2 (05:20→17:38)
[2016-11-06 05:24] LABS: MANUAL DIFF NEEDED? NO
[2016-11-06 05:29] LABS: BASO% 0.2 % (0.0-0.8); EOS# 0.15 X1000 (0.0-0.7); EOS% 0.9 % (0.0-10.0); HEMATOCRIT 30.1 % (37.0-47.0); HEMOGLOBIN 10.2 g/dL (12.0-16.0); IMM GRAN# 0.45 X1000 (0.0-0.04); IMM GRAN% 2.8 % (0.0-0.5); LYMPH# 0.87 X1000 (1.2-3.4); LYMPH% 5.3 % (20.5-51.1); MCH 32.6 PG (27-31); MCHC 33.9 g/dL (33-37); MCV 96.2 FL (81-99); MONO# 1.18 X1000 (0.11-0.59); MONO% 7.2 % (1.7-9.3); MPV 9.8 FL (7.4-10.4); NEUT% 83.6 % (42.2-75.2); PLT 324 X1000 (130-400); RBC 3.13 XMIL (4.2-5.4)
[2016-11-06 05:56] LABS: CALCIUM 7.7 mg/dL (8.8-10.2); POTASSIUM 4.2 mmol/L (3.5-5.1)
[2016-11-06] MEDS: SYNTHROID PO SCH ×2 (05:56→06:03)
[2016-11-06] MEDS: MORPHINE IV PRN ×4 (06:29→21:02)
--- NOTE | 2016-11-06 06:42 | EKG Report ---
Test Performed on : 11/06/2016 06:06:39 AM Test Reason : atrial fibrillation Blood Pressure : / mmHG Vent. Rate : 118 BPM Atrial Rate : 163 BPM P-R Int : 000 ms QRS Dur : 100 ms QT Int : 320 ms P-R-T Axes : 000 -22 052 degrees QTc Int : 448 ms Atrial fibrillation. with rapid ventricular response. Abnormal ECG When compared with ECG of 05-NOV-2016 06:46, (Unconfirmed) No significant change was found Confirmed by Michel Valdivia MD ([id number]) on 11/06/2016 9:46:12 PM
[2016-11-06] MEDS: HEPARIN SUBQ SCH ×2 (08:00→21:02)
[2016-11-06] MEDS: MUCINEX PO SCH ×2 (08:00→21:02)
[2016-11-06] MEDS: LOPRESSOR PO SCH (08:00)
[2016-11-06] MEDS: NS 1,000 ML IV SCH ×2 (08:00→21:02)
--- NOTE | 2016-11-06 08:57 | PROGRESS NOTE ---
DATE: 11/06/2016 PRESENT ILLNESS: The patient has an E. coli urinary tract infection and bacteremia. MEDICATIONS: The patient has been switched to Ancef. PHYSICAL EXAMINATION: Vital Signs: Temperature is 97.8 degrees, pulse 120, respirations 18, blood pressure 118/75. General: This is a somewhat ill-appearing, elderly female. She is in no acute distress. Lungs: Clear to auscultation. Cardiovascular: Irregular and rapid heart rate. Abdomen: Abdomen and flanks soft and nontender. Neurologic: Patient is alert. Extremities: She can move her extremities. The left arm is swollen and it is a place where the IV in the arm infiltrated and the swelling is due to fluid in the arm. On physical exam the left arm is less swollen than it was yesterday LABORATORY AND X-RAY: The patient's blood earlier grew E. coli. The patient had blood cultures drawn yesterday to see if the bacteremia has cleared. Also a repeat urine culture however shows no growth. ASSESSMENT AND PLAN: The patient's urinary tract infection with bacteremia appears to be being treated well with medication. The plan is to continue treatment with Ancef for 14 days. When the patient's Valdez catheter is removed, I will order a bladder scan to record the amount of postvoid residual urine. Tomorrow, I have ordered a CBC and creatinine to be drawn. The patient's comorbidities include she is elderly, she has dementia and congestive heart failure. [place] [address], hemoglobin 10.2, and platelet count 324,000. Creatinine is 3.2. GFR is 14. Both blood and urine cultures grew E coli. Repeat urine culture thus far is sterile. Blood cultures are pending. Plan to continue with Ancef and I will repeat CBC and creatinine tomorrow. The patient has an Escherichia coli urinary tract infection and bacteremia. COMORBIDITIES: Include she is elderly, she has dementia and congestive heart failure.
--- NOTE | 2016-11-06 10:30 | PROGRESS NOTE ---
DATE: 11/06/2016 SUBJECTIVE: Dany Cruz is resting quietly in bed. She is joking around. She states that she only has some residual chest pain on the left side. It does have more pain with movement than at rest. She denies any increased work of breathing. OBJECTIVE: Her most recent vital signs: Her temperature is 97.8 degrees, blood pressure 118/75, heart rate 120, respirations are 18. She is currently on room air. Last recorded saturation is 96%. She has had 2040 In. She has had 1500 Out. LABORATORY DATA: This a.m., sodium 124, potassium 4.2, chloride 94, CO2 of 18. BUN 45, creatinine 3.2, glucose 111. Anion gap 12. Calcium 7.7, phosphorus 2.8. Albumin of 2. White count 16.32, hemoglobin 10.2, hematocrit 30.1, platelet count 324,000. The patient had a renal ultrasound completed on 11/04/2016 indicating right kidney measuring 8.5, left measuring 10.7. No hydronephrosis. Unremarkable. PHYSICAL EXAMINATION: This is an 81-year-old white female. She is currently resting in bed. She is in no acute distress. Her skin is warm and dry. HEENT: Normocephalic, atraumatic. Conjunctivae pale. She has LYLA. Mucous membranes are moist. Neck is supple. Trachea midline. No JVD. Cardiovascular: An irregular rate and rhythm today. She has no murmur or gallop appreciated. Lungs are clear to auscultation anteriorly. Equal excursion on O2. Abdomen is round, soft, nontender. Positive bowel sounds. Genitourinary: Valdez catheter remains in place. Extremities with 1+ lower extremity edema up into the thigh region. Neurologic : The patient is alert to person, forgetful to place and most recent events, still pleasant. ASSESSMENT AND PLAN: 1. Acute kidney injury. Acute tubular necrosis secondary to urosepsis. The patient's creatinine has continued to improve from 3.5 to 3.2 today. BUN remains stable. Adequate urine out. No indications for any changes today. We will continue to monitor. 2. Electrolytes. The patient continues with hyponatremia though this remains stable. It appears that this is chronic since back to 2011 being low of 137 in September. We will continue to monitor. 3. Acid-base balance. The patient has mild acidosis. This has continued to drop. We will determine if we need to start sodium bicarbonate on this patient as of tomorrow, possibly oral. 4. Anemia. This remains stable. 5. Leukocytosis. This is secondary to urosepsis. I would to thank you for allowing us to follow with this patient. Seen, data reviewed, discussed with Driss Hankins on 11/06/16. I agree with the above assessment and plan of care. rg Dictated by PORSHA Yousif for Jordan Estrada MD [facility]
[2016-11-06 11:23] LABS: URINE SOURCE CATH
[2016-11-06 11:31] LABS: BILIRUBIN URINE NEGATIVE (NEGATIVE); BLOOD URINE MODERATE (NEGATIVE); COLOR YELLOW; GLUCOSE URINE NEGATIVE (NEGATIVE); LEUKOCYTES URINE LARGE (NEGATIVE); NITRITE URINE NEGATIVE (NEGATIVE); PROTEIN URINE 100 mg/dL (NEGATIVE); SP GRAVITY URINE 1.012; TURBIDITY URINE HAZY (CLEAR); URINE MICRO REVIEW NEEDED? YES; UROBILINOGEN URINE NORMAL (NORMAL)
[2016-11-06 11:32] LABS: UR EPITHELIAL CELLS <10 /HPF (<10); URINE BACTERIA NEGATIVE /HPF; URINE CULTURE NEEDED? YES; URINE RBC 20-40 /HPF (<10); URINE WBC TNTC /HPF (<10)
[2016-11-06 12:42] LABS: URINE CASTS NONE SEEN; URINE CRYSTALS NONE SEEN; URINE SMALL ROUND CELLS NONE SEEN
--- NOTE | 2016-11-06 16:17 | PROGRESS NOTE ---
DATE: 11/06/2016 SUBJECTIVE: This patient states that she is doing better. She is not complaining of chest pain or belly pain. She is complaining of mild shortness of breath. She is still having generalized weakness. Probably this patient should go to a rehab center. OBJECTIVE: Vital Signs: Temperature 98 degrees, pulse 73, respiratory rate 18, blood pressure 101/84, oxygen saturation 90 on room air. HEENT: Head normocephalic. No trauma. PERRLA. Neck: Supple. No JVD. No masses. Central trachea. Chest: Clear to auscultation. No wheezing. No rales. Cardiovascular: Irregularly irregular rate and rhythm. No murmurs. Abdomen: Soft, nontender, nondistended. No hepatosplenomegaly. Neurological: The patient is alert and oriented x3. She moves all 4 extremities. Extremities: She has generalized weakness. LABORATORY: WBC 16.3, hemoglobin 10.2, hematocrit 30.1, platelet 324,000. Sodium 124, potassium 4.2, chloride 94, bicarbonate 18, BUN 45, creatinine 3.2, glucose 111, calcium 7.7, phosphorus 2.8, albumin 2. ASSESSMENT AND PLAN: 1. Atrial fibrillation with rapid ventricular response. This patient is still on Cardizem drip. Cardiology Department is following this patient. She feels better. She is not complaining of chest pain or palpitation at this moment. Mild shortness of breath. We will continue to monitor. 2. Acute kidney injury, likely related to acute tubular necrosis. Nephrology Department is following this patient. We will continue with the same treatment for now. 3. Urinary tract infection. We have a positive result for E. coli infection and the antibiotics have been changed to cefazolin. Infectious Disease Department is following this patient as well. 4. Hyponatremia. This is chronic. Will continue to monitor for now. 5. Leukocytosis. This is getting better. We will continue with the antibiotics. 6. Constipation. This patient is on Dulcolax at bedtime. We will continue with the same management. 7. Generalized weakness. I requested physical therapy yesterday and also rehab center placement for this patient. tax services manager have been notified. 8. Chronic alcoholism. For now this patient is stable. Continue to monitor. CRITICAL CARE TIME: 35 minutes.
[2016-11-06] MEDS: DULCOLAX PO SCH (21:02)
[2016-11-06] MEDS: REMERON PO SCH (21:02)
[2016-11-07] MEDS: CARDIZEM 100 MG/NS 100 ML IV SCH ×3 (02:04→20:46)
[2016-11-07] MEDS: KEFZOL 1 GM/D5W 50 ML IV SCH ×2 (05:19→17:30)
[2016-11-07 05:23] LABS: MANUAL DIFF NEEDED? NO
[2016-11-07 05:41] LABS: ALBUMIN 2.2 g/dL (3.5-5.0); CALCIUM 7.8 mg/dL (8.8-10.2); POTASSIUM 4.3 mmol/L (3.5-5.1)
[2016-11-07 05:48] LABS: BASO% 0.2 % (0.0-0.8); EOS# 0.19 X1000 (0.0-0.7); EOS% 1.3 % (0.0-10.0); IMM GRAN# 0.47 X1000 (0.0-0.04); IMM GRAN% 3.1 % (0.0-0.5); LYMPH# 1.04 X1000 (1.2-3.4); LYMPH% 6.9 % (20.5-51.1); MCH 32.2 PG (27-31); MCHC 33.3 g/dL (33-37); MCV 96.5 FL (81-99); MONO# 1.21 X1000 (0.11-0.59); MPV 9.6 FL (7.4-10.4); NEUT% 80.5 % (42.2-75.2); PLT 407 X1000 (130-400); RBC 3.11 XMIL (4.2-5.4)
[2016-11-07] MEDS: SYNTHROID PO SCH (06:01)
--- NOTE | 2016-11-07 06:44 | PROGRESS NOTE ---
DATE: 11/07/2016 PRESENT ILLNESS: The patient has an Escherichia coli urinary tract infection with an associated bacteremia. MEDICATIONS: This is day 2 of the Ancef treatment. PHYSICAL EXAMINATION: Vital Signs: Temperature 97.8 degrees, pulse 117, respirations 17 and blood pressure 123/85. General: This is an ill-appearing elderly female. She is in no acute distress. Lungs: Clear to auscultation. Cardiovascular: The patient has a rapid and irregular heart rate. Abdomen: Soft and nontender. Lungs: Clear to auscultation. Neurologic: Patient is alert. She does not have any tremor. Extremities: The left arm is less swollen. This is the arm where there was a infusion of IV fluid into the tissues. LABORATORY AND X-RAY: There is no new x-ray. The patient[place] [address], hemoglobin 10 and platelet count 407,000. Creatinine is 2.9. The GFR is 15. Repeat blood and urine cultures are pending. ASSESSMENT AND PLAN: The patient has E. coli urinary tract infection with bacteremia. The plan is to continue with Ancef pending repeat studies. COMORBIDITIES: She is elderly, has dementia as well as congestive heart failure.
--- NOTE | 2016-11-07 07:11 | EKG Report ---
Test Performed on : 11/07/2016 06:32:44 AM Test Reason : atrial fibrillation Blood Pressure : / mmHG Vent. Rate : 124 BPM Atrial Rate : 178 BPM P-R Int : 000 ms QRS Dur : 098 ms QT Int : 308 ms P-R-T Axes : 000 -29 -01 degrees QTc Int : 442 ms Atrial fibrillation. with rapid ventricular response. Low voltage QRS Cannot rule out Anterior infarct , age undetermined Abnormal ECG When compared with ECG of 06-NOV-2016 06:06, No significant change was found Confirmed by Michel Valdivia MD ([id number]) on 11/08/2016 8:51:27 PM
[2016-11-07] MEDS: MUCINEX PO SCH ×2 (08:59→20:46)
[2016-11-07] MEDS: LOPRESSOR PO SCH (09:00)
[2016-11-07] MEDS: HEPARIN SUBQ SCH ×2 (09:00→20:46)
[2016-11-07] MEDS: NS 1,000 ML IV SCH ×2 (10:20→22:26)
--- NOTE | 2016-11-07 11:04 | PROGRESS NOTE ---
DATE: 11/07/2016 SUBJECTIVE: She is improving day by day. Her interaction is more appropriate. No shortness of breath. OBJECTIVE: Vital Signs: Blood pressure 116/70, heart rate 124, respirations 20, afebrile. Intake 2.9 L. Output 1.7 L. PHYSICAL EXAM: No acute distress.Skin: Warm and dry. HEENT: Conjunctivae are pink. Neck: Neck veins are not distended. Heart: Regular. No murmurs or gallops. Lungs: Have equal breath sounds. No crackles. Abdomen: Soft and nontender. Bowel sounds are present. Extremities: Have no edema, clubbing, or cyanosis. LABORATORY DATA: Sodium 129, potassium 4.3, chloride 100, bicarbonate 18, BUN 41, creatinine 2.9. Hemoglobin 10.0. IMPRESSION: 1. Acute kidney injury secondary to sepsis. Labs are improving. No indications for dialysis. 2. Electrolytes: Hyponatremia is improved. 3. Acid base, stable.
--- NOTE | 2016-11-07 11:22 | PROGRESS NOTE ---
DATE: 11/07/2016 SUBJECTIVE: This patient states that she is feeling about the same. She feels tired today. She is not complaining about chest pain or shortness or shortness of breath. No abdominal pain either. She is still having generalized weakness. This patient upon discharge will go to a rehab center, . OBJECTIVE: Vital Signs: Temperature 98 degrees, pulse 124, respiratory rate 20, blood pressure 116/70, oxygen saturation 99 on 2 L of nasal cannula. HEENT: Head normocephalic. No trauma. PERRLA. Neck: Supple. No JVD. No masses. Central trachea. Chest: Clear to auscultation. No wheezing. No rales. Cardiovascular: Irregularly irregular rate and rhythm. No murmurs. Tachycardiac. Abdomen: Soft, nontender, nondistended. No hepatosplenomegaly. Neurological: The patient is alert and oriented x3. She moves all 4 extremities. She has generalized weakness. LABORATORY: WBC 15, hemoglobin 10, hematocrit 30, platelets 407,000. Sodium 129, potassium 4.3, chloride 100, bicarbonate 18, BUN 41, creatinine 2.9, glucose 126, calcium 7.8, albumin 2.2. ASSESSMENT AND PLAN: 1. Atrial fibrillation with rapid ventricular response. Patient is still on Cardizem drip. Cardiology Department is following this patient. She is feeling about the same. She has no complaint of chest pain. No palpitations at this moment. We will continue to monitor. We will follow the recommendation of Cardiology Department. 2. Acute kidney injury. This is likely related to acute tubular necrosis. Nephrology Department is following this patient. The creatinine looks a little bit better today. We will continue with the same management. 3. Urinary tract infection. We have a positive result for Escherichia coli in the urine. She is on cefazolin. Infectious Disease Department is following this patient as well. 4. Hyponatremia. This is chronic. The sodium looks better today. Increased from 124 to 129. 5. Leukocytosis. We will continue to monitor. We will continue with the antibiotics. 6. Constipation. This patient is on Dulcolax at bedtime. We will continue with the same management. 7. Generalized weakness. This patient will be discharged in the future to a rehab center, [facility]. 8. Chronic alcoholism. Stable. Continue to monitor. CRITICAL CARE TIME: 35 minutes.
[2016-11-07] MEDS: LANOXIN IV SCH ×2 (11:25→17:29)
[2016-11-07] MEDS: CARDIZEM PO SCH ×3 (11:25→22:26)
--- NOTE | 2016-11-07 14:17 | Diag Imaging Result Document ---
PROCEDURE NAME: CHEST-2 VIEWS - 11/07/2016 FRONTAL AND LATERAL CHEST, 2 VIEWS. COMPARISON: Compared to 11/02/2016. FINDINGS: There are small bilateral pleural effusions and there is bibasilar atelectasis versus small underlying infiltrates. Heart is not enlarged. The vessels are not distended. Patient has scoliosis. Mild increased AP diameter to the chest. IMPRESSION: 1. Worsening basilar atelectasis versus small infiltrates. 2. Small bilateral pleural effusions. 3. The patient may have underlying emphysema.
[2016-11-07] MEDS: MORPHINE IV PRN (15:14)
[2016-11-07 18:10] LABS: INR 1.07; PROTIME 11.4 Seconds (9.2-11.7)
[2016-11-07] MEDS: DULCOLAX PO SCH (20:46)
[2016-11-07] MEDS: REMERON PO SCH (20:46)
[2016-11-08] MEDS: MORPHINE IV PRN ×5 (00:13→22:38)
[2016-11-08] MEDS: NS 1,000 ML IV SCH (02:22)
[2016-11-08] MEDS: CARDIZEM PO SCH ×4 (05:38→22:38)
[2016-11-08] MEDS: KEFZOL 1 GM/D5W 50 ML IV SCH ×2 (05:38→17:46)
[2016-11-08] MEDS: SYNTHROID PO SCH (06:09)
[2016-11-08 06:12] LABS: CALCIUM 7.9 mg/dL (8.8-10.2); POTASSIUM 4.7 mmol/L (3.5-5.1)
[2016-11-08 06:26] LABS: BASO% 0.5 % (0.0-0.8); EOS# 0.15 X1000 (0.0-0.7); EOS% 1.2 % (0.0-10.0); HEMOGLOBIN 9.6 g/dL (12.0-16.0); IMM GRAN# 0.41 X1000 (0.0-0.04); IMM GRAN% 3.2 % (0.0-0.5); LYMPH# 0.96 X1000 (1.2-3.4); LYMPH% 7.5 % (20.5-51.1); MANUAL DIFF NEEDED? YES; MCH 32.2 PG (27-31); MCHC 33.1 g/dL (33-37); MCV 97.3 FL (81-99); MONO# 0.98 X1000 (0.11-0.59); MONO% 7.6 % (1.7-9.3); MPV 9.2 FL (7.4-10.4); PLT 420 X1000 (130-400); RBC 2.98 XMIL (4.2-5.4)
[2016-11-08] MEDS ORDERED: LASIX IV ONE (06:51)
[2016-11-08] MEDS ORDERED: ALBUMIN 25% IV ONE (06:51)
--- NOTE | 2016-11-08 07:11 | PROGRESS NOTE ---
DATE: 11/08/2016 PRESENT ILLNESS: The patient has an Escherichia coli urinary tract infection, which was the origin of her Escherichia coli pneumonia. MEDICATIONS: This is day 3 of treatment with Ancef. PHYSICAL EXAMINATION: Vital Signs: Temperature is 98 degrees, pulse 91, respirations 18, blood pressure 139/72. General: This is an ill-appearing elderly female. She is in no acute distress. Lungs: Clear to auscultation. Cardiovascular: Irregular heart rate. Abdomen: Soft without masses or tenderness. Neurologic: The patient is awake. She can move her extremities. LABORATORY AND X-RAY: Chest x-ray shows a bibasilar pneumonia versus atelectasis. CBC shows a white count of 12,840, hemoglobin 9.6, and platelet count 420,000. Creatinine is 2.5. GFR is 18. Blood and urine cultures are sterile. Again, vital signs, temperature is 98 degrees, pulse 91, respirations 18, blood pressure 139/72. ASSESSMENT AND PLAN: The patient has an Escherichia coli urinary tract infection and bacteremia. My plan is to continue the patient's Ancef, to which the organism is susceptible. The dose has been modified because of the patient's renal failure. I would treat the patient for a total of 14 days because of the presence of bacteremia with Escherichia coli urinary tract infection. COMORBIDITIES: The patient's comorbidities include she is elderly. She has dementia and also has congestive heart failure.
[2016-11-08 07:23] LABS: BANDS 2 % (0-1); EOS 1 % (1-10); LARGE PLATELETS OCCASIONAL; LYMPHS 8 % (21-51); MONO 7 % (1-9)
--- NOTE | 2016-11-08 07:35 | EKG Report ---
Test Performed on : 11/08/2016 07:03:20 AM Test Reason : afib Blood Pressure : / mmHG Vent. Rate : 082 BPM Atrial Rate : 077 BPM P-R Int : 000 ms QRS Dur : 100 ms QT Int : 350 ms P-R-T Axes : 000 -33 -77 degrees QTc Int : 408 ms Atrial fibrillation. with a competing junctional pacemaker. Left axis deviation Low voltage QRS Cannot rule out Anterior infarct (cited on or before 07-NOV-2016) Nonspecific T wave abnormality Abnormal ECG When compared with ECG of 07-NOV-2016 06:32, (Unconfirmed) Vent. rate has decreased BY 42 BPM Nonspecific T wave abnormality now evident in Anterior leads Confirmed by Michel Valdivia MD ([id number]) on 11/08/2016 9:03:32 PM
[2016-11-08] MEDS: LANOXIN PO SCH (08:13)
[2016-11-08] MEDS: HEPARIN SUBQ SCH ×2 (08:13→20:48)
[2016-11-08] MEDS: MUCINEX PO SCH ×2 (08:13→20:47)
[2016-11-08] MEDS: LOPRESSOR PO SCH (08:13)
[2016-11-08] MEDS ORDERED: NS 250 ML ONE (08:23)
--- NOTE | 2016-11-08 09:36 | PROGRESS NOTE ---
DATE: 11/08/2016 CHIEF COMPLAINT: Shortness of breath, irregular heartbeat. SUBJECTIVE: Mrs. Saenz is definitely doing better. She is not having any pain. She is breathing more comfortably. She does have some swelling of the legs. OBJECTIVE: Vital signs: Blood pressure today shows 120/58, temperature 97.9, pulse 70, respirations 18. General: She is awake, alert. She is eating breakfast. HEENT: Slight prominent jugular veins. Chest: Diminished breath sounds at the bases. Cardiac: Heart sounds are irregularly irregular, no gallop or murmur. Abdomen: Nontender. Extremities: Show trace edema bilaterally. Pulses are slightly diminished. BLOOD WORK: White count 12,840 which is coming down. Bands are 2.7, neutrophils 80%. Sodium 131, potassium 4.7, BUN 35, creatinine 2.5. ProBNP has come down to 12,943. IMAGING: Chest x-ray that we did yesterday shows that there are small bilateral pleural effusions, worsening basal atelectasis versus small infiltrates. Underlying emphysema. IMPRESSION: 1. Patient who presented with septicemia, E. coli urinary tract infection. 2. Atrial fibrillation with rapid response. 3. Patient with coronary heart disease, diastolic dysfunction, heart failure. 4. Chronic and acute renal insufficiency. RECOMMENDATION: At this point in time, I would suggest to add albumin and Lasix. Her albumin was really low at 2.2 when checked the last time. Hopefully, that will promote diuresis. We could probably give her a few more rounds of that combination over the next couple of days. She definitely needs to stay in the stepdown unit, [facility]. We have increased her diltiazem to 60 mg q.6 h. However, she might require additional digoxin and oral diltiazem to optimize her heart rate. Will follow her along. Thank you again for the opportunity to participate in her evaluation.
[2016-11-08] MEDS ORDERED: NEOSPORIN OINTMENT PACKET TOP ONE (11:23)
--- NOTE | 2016-11-08 11:33 | PROGRESS NOTE ---
DATE: 11/08/2016 SUBJECTIVE: She is feeling well. She is sitting up in the chair. She is eating. No shortness of breath. She does complain of swelling. OBJECTIVE: Vital Signs: Blood pressure 120/58, heart rate 90, respiration 18, afebrile. Intake 2.5 L. Output 1.8 L. PHYSICAL EXAM: No acute distress.Skin: Warm and dry. HEENT: Conjunctivae are pink. Neck: Neck veins are not distended. Heart: Regular with S4. Lungs: Have equal breath sounds. No crackles or wheezes. Abdomen: Soft, nontender. Bowel sounds are present. Extremities: Have 1+ edema. No clubbing or cyanosis. LABORATORY DATA: Sodium 131, potassium 4.7, chloride 101, bicarbonate 18, BUN 35, creatinine 2.5, hemoglobin 9.6. IMPRESSION: 1. Acute kidney injury secondary to sepsis. Progressive improvement. 2. Volume overload. I stopped IV fluids and dose with furosemide. She typically takes furosemide at home. 3. Electrolytes are in target. 4. Acid base, stable and should improve with her kidney function.
--- NOTE | 2016-11-08 13:32 | PROGRESS NOTE ---
DATE: 11/08/2016 SUBJECTIVE: This patient states that she is feeling better, she is not complaining of chest pain. No shortness of breath today. She is complaining of mild lower extremity edema. Upon discharge this patient will go to a rehab center, [facility]. OBJECTIVE: Vital Signs: Temperature 97.6 degrees, pulse 83, respiratory rate 18, blood pressure 147/75, O2 saturation 100% on room air. HEENT: Head normocephalic. No trauma. PERRLA. Neck: Supple. No JVD. No masses. Central trachea. Chest: Clear to auscultation. No wheezing. No rales. Cardiovascular: Irregularly irregular rate and rhythm. No murmurs. Abdomen: Soft, nontender, nondistended. No hepatosplenomegaly. Neurological: The patient is alert and oriented x3. No focal neurological deficits. She has generalized weakness. Extremities: 1+ lower extremity edema. No clubbing. No cyanosis. LABORATORY: WBC 12.8, hemoglobin 9.6, hematocrit 29, platelets 420,000. Sodium 131, potassium 4.7, chloride 101, bicarbonate 18, BUN 35, creatinine 2.5, glucose 95, calcium 7.9. ASSESSMENT AND PLAN: 1. Atrial fibrillation with RVR, rate is controlled. Cardiology Department is following this patient. The dose of Cardizem has been p.o. has been increased, and digoxin has been added. 2. Acute kidney injury, likely related to acute tubular necrosis. Nephrology Department following this patient. The creatinine looks a little bit better compared with yesterday, today is 2.5 and yesterday 3.2. We will continue to monitor. 3. Urinary tract infection. We have a positive result for E. coli in the urine and also in the blood. This patient will be on cefazolin for at least 2 weeks. 4. Bacteremia, also we have a positive result for E. coli in the blood. We will continue to monitor and with the same treatment. Infectious Disease Department is following this patient. 5. Hyponatremia. This is chronic. The sodium looks better today. Yesterday was 129, today is 131. We will continue to monitor. 6. Fluid overload. This patient will be on Lasix again, she used to be on Lasix at home. 7. Leukocytosis. Continue to monitor. It is getting better. 8. Constipation. This patient is on Dulcolax at bedtime. We will continue with the same management. 9. Generalized weakness. This patient will be discharged in the future to a rehab center, [facility]. CRITICAL CARE TIME: 35 minutes.
[2016-11-08] MEDS: DULCOLAX PO SCH (20:47)
[2016-11-08] MEDS: REMERON PO SCH (20:47)
[2016-11-09] MEDS: CARDIZEM PO SCH ×4 (05:10→22:11)
[2016-11-09] MEDS: KEFZOL 1 GM/D5W 50 ML IV SCH ×3 (05:11→17:02)
[2016-11-09 05:46] LABS: CALCIUM 8.3 mg/dL (8.8-10.2); POTASSIUM 4.9 mmol/L (3.5-5.1)
[2016-11-09 05:50] LABS: BASO% 0.1 % (0.0-0.8); EOS# 0.18 X1000 (0.0-0.7); EOS% 1.3 % (0.0-10.0); HEMATOCRIT 28.7 % (37.0-47.0); HEMOGLOBIN 9.4 g/dL (12.0-16.0); IMM GRAN# 0.45 X1000 (0.0-0.04); IMM GRAN% 3.3 % (0.0-0.5); LYMPH# 1.13 X1000 (1.2-3.4); LYMPH% 8.2 % (20.5-51.1); MANUAL DIFF NEEDED? YES; MCH 31.9 PG (27-31); MCHC 32.8 g/dL (33-37); MCV 97.3 FL (81-99); MONO% 7.3 % (1.7-9.3); MPV 9.1 FL (7.4-10.4); NEUT% 79.8 % (42.2-75.2); PLT 471 X1000 (130-400); RBC 2.95 XMIL (4.2-5.4)
[2016-11-09] MEDS: SYNTHROID PO SCH (06:17)
[2016-11-09 08:01] LABS: BANDS 4 % (0-1); EOS 2 % (1-10); LYMPHS 8 % (21-51); MONO 6 % (1-9)
[2016-11-09] MEDS: MUCINEX PO SCH ×2 (08:20→22:11)
[2016-11-09] MEDS: LOPRESSOR PO SCH (08:20)
[2016-11-09] MEDS: HEPARIN SUBQ SCH ×2 (08:20→22:11)
[2016-11-09] MEDS: LANOXIN PO SCH (08:20)
[2016-11-09] MEDS ORDERED: LASIX PO SCH (09:00)
--- NOTE | 2016-11-09 11:19 | PROGRESS NOTE ---
DATE: 11/09/2016 SUBJECTIVE: This patient states that she is feeling better. She is not complaining of chest pain, shortness of breath or abdominal pain today. Hopefully next Friday or Friday this patient will be able to be discharged to [facility]. OBJECTIVE: Vital Signs: Temperature 98.1 degrees, pulse 81, respiratory rate 18, blood pressure 123/65, O2 saturation 100% on 4 L of nasal cannula. HEENT: Head normocephalic. No trauma. PERRLA. Neck: Supple. No JVD. No masses. Central trachea. Chest: Clear to auscultation. No wheezing. No rales. Cardiovascular: Irregularly irregular rate and rhythm. No murmurs. Abdomen: Soft, nontender, nondistended. No hepatosplenomegaly. Neurological: The patient is alert and oriented x3. No focal neurological deficits. She has generalized weakness. Extremities: Trace edema in the lower extremities. No clubbing. No cyanosis. LABORATORY: WBC 13.7, hemoglobin 9.4, hematocrit 28.7, platelets 471,000. Sodium 135, potassium 4.9, chloride 101, bicarbonate 23, BUN 40, creatinine 2.5. Glucose 107. Calcium 8.3. ASSESSMENT AND PLAN: 1. Atrial fibrillation with rapid ventricular response, the rate is controlled at this moment. Cardiology Department is following this patient. We will continue with Cardizem p.o. and following the recommendation of Cardiology Department. 2. Acute kidney injury. Compared with yesterday creatinine is about the same. Today it is 2.5. Will continue to monitor. Nephrology Department is following this patient. 3. Urinary tract infection. We have a positive result for E. coli in the urine. This patient should be on cefazolin for at least 2 weeks. 4. Bacteremia. We also have a positive result for E. coli in the blood. We will continue to monitor with the same treatment. Infectious Disease Department is following this patient. 5. Hyponatremia. The sodium is much better today. Yesterday was 131, today is 135. Will continue with the same management. 6. Fluid overload. Continue with Lasix. 7. Leukocytosis. Continue to monitor. Compared with yesterday is about the same. 8. Constipation. This patient is on Dulcolax at bedtime and we can use p.r.n. suppository. 9. Generalized weakness. This patient [facility] the [facility] once she is [facility]. CRITICAL CARE TIME: 35 minutes.
--- NOTE | 2016-11-09 12:31 | PROGRESS NOTE ---
DATE: 11/09/2016 SUBJECTIVE: Ms. Saenz reports she is feeling okay. She is tolerating oral intake. Family reports that her swelling has improved. PHYSICAL EXAMINATION: Vital signs: She is afebrile. Heart rate is 74, blood pressure 105/58. General: She is in no acute distress. Cardiovascular: She is in an irregularly irregular rhythm. She has no obvious murmurs. She has no S3. She has no lower extremity edema. Chest: Clear bilaterally. No increased work of breathing. Abdomen: Soft, nontender, nondistended. She has no obvious organomegaly. PERTINENT DATA: White count 13.8, hematocrit 28.7, platelet count 471,000. Her sodium is 135, potassium 4.9, BUN 40, creatinine 2.5. This is roughly stable from yesterday. ASSESSMENT: 1. Renal insufficiency. 2. Urosepsis. 3. Atrial fibrillation. PLAN: Atrial fibrillation has been relatively well controlled on her current regimen of oral diltiazem and digoxin. She also was on metoprolol at 50 mg daily. I would continue these medications. I will defer the decision for anticoagulation in the future when Dr. Davison comes back on Friday. She seems to be rate controlled presently.
[2016-11-09] MEDS: MORPHINE IV PRN (17:36)
[2016-11-09] MEDS: DULCOLAX PO SCH (22:11)
[2016-11-09] MEDS: REMERON PO SCH (22:11)
[2016-11-10] MEDS: CARDIZEM PO SCH ×4 (04:36→23:47)
[2016-11-10 05:28] LABS: MANUAL DIFF NEEDED? NO
[2016-11-10 05:36] LABS: BASO% 0.2 % (0.0-0.8); EOS# 0.19 X1000 (0.0-0.7); EOS% 1.3 % (0.0-10.0); HEMATOCRIT 27.7 % (37.0-47.0); IMM GRAN# 0.37 X1000 (0.0-0.04); IMM GRAN% 2.6 % (0.0-0.5); LYMPH# 1.19 X1000 (1.2-3.4); LYMPH% 8.4 % (20.5-51.1); MCH 32.1 PG (27-31); MCHC 32.5 g/dL (33-37); MCV 98.9 FL (81-99); MONO# 0.87 X1000 (0.11-0.59); MONO% 6.2 % (1.7-9.3); NEUT% 81.3 % (42.2-75.2); PLT 482 X1000 (130-400)
[2016-11-10 05:48] LABS: CALCIUM 8.6 mg/dL (8.8-10.2); POTASSIUM 4.8 mmol/L (3.5-5.1)
[2016-11-10] MEDS: KEFZOL 1 GM/D5W 50 ML IV SCH ×3 (05:52→17:33)
[2016-11-10] MEDS: SYNTHROID PO SCH ×2 (05:52→06:08)
[2016-11-10] MEDS: HEPARIN SUBQ SCH ×2 (08:14→20:41)
[2016-11-10] MEDS: MUCINEX PO SCH ×2 (08:14→20:41)
[2016-11-10] MEDS: LANOXIN PO SCH (08:15)
[2016-11-10] MEDS: LOPRESSOR PO SCH (08:15)
--- NOTE | 2016-11-10 10:13 | PROGRESS NOTE ---
DATE: 11/10/2016 SUBJECTIVE: This patient states that she is feeling better. She is not complaining of chest pain, shortness of breath, or abdominal pain today. Hopefully, she will be discharged next Friday or Friday. She is going to be discharged to [facility]. Probably, this patient will need anticoagulation as well. OBJECTIVE: Vital Signs: Temperature 98.1 degrees, pulse 58, respiratory rate 18, blood pressure 125/47, oxygen saturation 100% on 3 L of nasal cannula. HEENT: Head normocephalic. No trauma. PERRLA. Neck: Supple. No JVD. No masses. Central trachea. Chest: Clear to auscultation. No wheezing. Mild rales at the bases. Cardiovascular: Irregularly irregular rate and rhythm. No murmurs. Abdomen: Soft, nontender, nondistended. No hepatosplenomegaly. Neurological Examination: The patient is alert and oriented x3. No focal neurological deficits. She has generalized weakness. Extremities: No edema. No clubbing. No cyanosis. Laboratory: WBC 14.1, hemoglobin 9, hematocrit 27.7, platelets 482,000. Sodium 131, potassium 4.8, chloride 98, bicarbonate 23, BUN 38, creatinine 2.8, calcium 8.6, glucose 100. ASSESSMENT AND PLAN: 1. Atrial fibrillation with rapid ventricular response. At this moment, the rate is controlled. We will continue with the same management. She is on Cardizem and metoprolol tartrate and digoxin. Probably, this patient will need anticoagulation. We will wait for cardiology recommendations for that. 2. Acute kidney injury. The creatinine is increased a little bit compared with yesterday. Today is 2.8 and yesterday 2.5. Nephrology department is following this patient. 3. Urinary tract infection. We have a positive result for Escherichia coli in the urine. This patient is going to be on cefazolin for at least 2 weeks. 4. Bacteremia. We also have a positive result for Escherichia coli in the blood. We will continue to monitor this patient and the treatment. Infectious disease department is following this patient. She will be on cefazolin for 2 weeks. 5. Hyponatremia, stable. The sodium is around 131. We will continue to monitor. 6. Fluid overload. Continue with Lasix. 7. Leukocytosis, has been around the same for the past 2 days. We will continue to monitor and treatment. 8. Constipation. This patient is on Dulcolax at bedtime and we can use as needed suppository. 9. Generalized weakness. This patient will be discharged in the future to a rehabilitation center, [facility] once she is ready. CRITICAL CARE TIME: 30 minutes.
[2016-11-10] MEDS: DULCOLAX PO SCH (20:41)
[2016-11-10] MEDS: REMERON PO SCH (20:41)
[2016-11-10] MEDS: MORPHINE IV PRN (23:47)
[2016-11-11 05:45] LABS: BASO% 0.4 % (0.0-0.8); EOS# 0.16 X1000 (0.0-0.7); EOS% 1.5 % (0.0-10.0); HEMATOCRIT 27.2 % (37.0-47.0); HEMOGLOBIN 8.9 g/dL (12.0-16.0); IMM GRAN# 0.37 X1000 (0.0-0.04); IMM GRAN% 3.5 % (0.0-0.5); LYMPH# 0.98 X1000 (1.2-3.4); LYMPH% 9.3 % (20.5-51.1); MANUAL DIFF NEEDED? YES; MCH 32.2 PG (27-31); MCHC 32.7 g/dL (33-37); MCV 98.6 FL (81-99); MONO# 0.89 X1000 (0.11-0.59); MONO% 8.4 % (1.7-9.3); MPV 8.9 FL (7.4-10.4); NEUT% 76.9 % (42.2-75.2); PLT 486 X1000 (130-400); RBC 2.76 XMIL (4.2-5.4)
[2016-11-11 06:05] LABS: ALBUMIN 2.5 g/dL (3.5-5.0); CALCIUM 8.8 mg/dL (8.8-10.2); POTASSIUM 4.7 mmol/L (3.5-5.1)
[2016-11-11] MEDS: CARDIZEM PO SCH ×4 (06:17→22:42)
[2016-11-11] MEDS: KEFZOL 1 GM/D5W 50 ML IV SCH ×3 (06:17→17:01)
[2016-11-11] MEDS: SYNTHROID PO SCH (06:17)
[2016-11-11] MEDS ORDERED: KEFLEX PO SCH (07:00)
[2016-11-11 07:10] LABS: LYMPHS 9 % (21-51); MONO 7 % (1-9)
--- NOTE | 2016-11-11 07:18 | EKG Report ---
Test Performed on : 11/10/2016 04:20:33 AM Test Reason : No Order in [place] Blood Pressure : / mmHG Vent. Rate : 061 BPM Atrial Rate : 061 BPM P-R Int : 184 ms QRS Dur : 102 ms QT Int : 378 ms P-R-T Axes : 056 -02 048 degrees QTc Int : 380 ms Normal sinus rhythm. Low voltage QRS Septal infarct (cited on or before 07-NOV-2016) Abnormal ECG When compared with ECG of 08-NOV-2016 07:03, Sinus rhythm. has replaced Atrial fibrillation. Questionable change in initial forces of Anterior leads Nonspecific T wave abnormality no longer evident in Lateral leads Confirmed by Michel Valdivia MD ([id number]) on 11/12/2016 9:28:58 PM
--- NOTE | 2016-11-11 07:19 | PROGRESS NOTE ---
DATE: 11/11/2016 PRESENT ILLNESS: Patient has an E-coli urinary tract infection with bacteremia which may well be the origin of her E-coli pneumonia. MEDICATIONS: The patient is on IV Ancef. PHYSICAL EXAM: Vital signs-temp 97.7, pulse 63, RR 14, BP 134/49. Lungs-clear to auscultation, CV-irregular HR, Abdomen-soft and not tender, Neurological-alert, moves all extremities. LAB AND X-RAY: CBC shows a white count 10.580, hemoglobin 8.9, and platelet count 486,000. Creatinine is 2.4. GFR is 19. Stool, blood and urine cultures are negative. Clostridium difficile toxin is negative as well. ASSESSMENT AND PLAN: The patient has urinary tract infection with bacteremia and pneumonia. I plan to continue Ancef for a total of 14 days and then repeat the chest x-ray. COMORBIDITIES: Include that she is elderly. She has dementia and congestive heart failure. [facility]
[2016-11-11] MEDS: HEPARIN SUBQ SCH (09:30)
[2016-11-11] MEDS: MUCINEX PO SCH ×2 (09:30→21:10)
[2016-11-11] MEDS: LANOXIN PO SCH (09:30)
[2016-11-11] MEDS: LOPRESSOR PO SCH (09:30)
[2016-11-11] MEDS: MORPHINE IV PRN ×2 (09:31→18:37)
--- NOTE | 2016-11-11 14:50 | PROGRESS NOTE ---
DATE: 11/11/2016 SUBJECTIVE: Patient is sitting up in a chair. She has no complaints. She states she feels better. Believes that she will go to rehab soon. OBJECTIVE: Vital Signs: Temperature 97.7 degrees, pulse 63, respiratory rate 18, blood pressure 134/49, intake 700 mL, output 2.3 L. PHYSICAL EXAMINATION: General: Elderly female resting in chair no acute distress. Awake, alert, oriented x4. HEENT: Normocephalic, atraumatic. LYLA. Neck: Supple. No JVD. Cardiovascular: Regular rate and rhythm with a gallop noted. Pulmonary: Equal excursion. Clear bilaterally. No increased work of breathing. Abdomen: Soft. Positive bowel sounds. Extremities: Trace pretibial edema. No clubbing or cyanosis. She is moving all extremities and ambulatory with assistance. Integumentary: Skin is warm and dry without rash or lesion. LAB DATA: WBC of 10.5, hemoglobin 8.9. Sodium 131, potassium 4.7, CO2 24, BUN 37, creatinine 2.4. ASSESSMENT AND PLAN: 1. Acute kidney injury secondary to sepsis. She has had slow but progressive improvement. 2. Fluid volume overload. She has been negative territory now for of couple of days. Edema is much better. 3. Electrolytes, acid-base balance, anemia. These are all stable. 4. Hypertension controlled. 5. Disposition. From a renal standpoint, we can follow her as an outpatient regarding her acute kidney injury and have labs drawn in the next 2 weeks and see her in followup. Seen, data reviewed, discussed with Armando Albarado on 11/11/15. I agree with the above assessment and plan of care. rg Dictated by PORSHA Juárez for Jordan Estrada MD [facility]
--- NOTE | 2016-11-11 17:16 | PROGRESS NOTE ---
DATE: 11/11/2016 SUBJECTIVE: This patient states that she is feeling better. She is not complaining of chest pain or shortness of breath, no abdominal pain. The plan is to send this patient over to [facility] tomorrow, all the final adjustments have been done today. OBJECTIVE: Vital Signs: Temperature 97.8 degrees, pulse 83, respiratory rate 18, blood pressure 149/67, O2 saturation 100% on room air. HEENT: Head normocephalic. No trauma. PERRLA. Neck: Supple. No JVD. No masses. Central trachea. Chest: Clear to auscultation. No wheezing. No rales. Cardiovascular: Irregularly irregular rate and rhythm. No murmurs. Abdomen: Soft, nontender, nondistended. No hepatosplenomegaly. Neurological: The patient is alert and oriented x3. No focal neurological deficits. She has generalized weakness. Extremities: No edema. No clubbing. No cyanosis. LABORATORY: WBC 10.5, hemoglobin 8.9, hematocrit 27.2, platelet 486,000. Sodium 131, potassium 4.7, chloride 97, bicarbonate 24, BUN 37, creatinine 2.4. Glucose 88, calcium 8.8, albumin 2.5. ASSESSMENT AND PLAN: 1. Atrial fibrillation with rapid ventricular response. At this moment is rate controlled. Cardiology has recommended the following medications: Cardizem CD 240 mg daily, digoxin 125 mg daily, and Lopressor 50 mg q.a.m. Also they already stopped the heparin and they started this patient on Eliquis 2.5 mg p.o. b.i.d., and upon discharge she will follow up with Dr. Davison in 1 month. 2. Acute kidney injury. The creatinine has been stable for the past days, Nephrology Department is following this patient, upon discharge they will call the patient to obtain more lab work and they will probably see this patient as an outpatient as well. 3. Bacteremia. We have a positive result Escherichia coli in the blood. We will continue with cefazolin IV, and so far she has been getting 7 days of treatment, and Infectious Disease Department has recommended to continue this for 2 weeks. I called her granddaughter. She works at [facility] and they are able to get an IV line if they need to place a new one. 4. Hyponatremia, stable. Sodium is around 131. We will continue to monitor. 5. Leukocytosis. Today the white blood cell count is normal. Continue to monitor. 6. Constipation. This patient is on Dulcolax at bedtime and we can use as needed suppository. 7. Generalized weakness. This patient will be discharged tomorrow to [facility]. The [place] catheter has been removed today. CRITICAL CARE TIME: 30 minutes.
[2016-11-11] MEDS: ELIQUIS PO SCH (21:09)
[2016-11-11] MEDS: DULCOLAX PO SCH (21:10)
[2016-11-11] MEDS: REMERON PO SCH (22:43)
[2016-11-12 05:04] LABS: MANUAL DIFF NEEDED? NO
[2016-11-12 05:11] LABS: BASO% 0.5 % (0.0-0.8); EOS# 0.15 X1000 (0.0-0.7); EOS% 1.5 % (0.0-10.0); HEMATOCRIT 27.3 % (37.0-47.0); HEMOGLOBIN 8.7 g/dL (12.0-16.0); IMM GRAN# 0.19 X1000 (0.0-0.04); IMM GRAN% 1.9 % (0.0-0.5); LYMPH# 1.22 X1000 (1.2-3.4); LYMPH% 12.4 % (20.5-51.1); MCH 31.5 PG (27-31); MCHC 31.9 g/dL (33-37); MCV 98.9 FL (81-99); MONO# 0.86 X1000 (0.11-0.59); MONO% 8.7 % (1.7-9.3); MPV 8.8 FL (7.4-10.4); PLT 510 X1000 (130-400); RBC 2.76 XMIL (4.2-5.4)
[2016-11-12 05:22] LABS: ALBUMIN 2.6 g/dL (3.5-5.0); POTASSIUM 5.1 mmol/L (3.5-5.1)
[2016-11-12] MEDS: KEFZOL 1 GM/D5W 50 ML IV SCH (06:37)
[2016-11-12] MEDS: SYNTHROID PO SCH (06:37)
--- NOTE | 2016-11-12 08:05 | PROGRESS NOTE ---
DATE: 11/12/2016 PRESENT ILLNESS: The patient has an Escherichia coli urinary tract infection with associated bacteremia and pneumonia. MEDICATIONS: The patient is on IV Ancef. The patient has had a total of 10 days of intravenous antibiotics for treatment of her infection. PHYSICAL EXAMINATION: Vital Signs: Temperature is 98.1 degrees, pulse 67, respirations 18, blood pressure 153/76. Generally: This is a chronically ill-appearing, elderly female. She is in no acute distress. Lungs: Clear to auscultation. Cardiovascular: Regular heart rate. Abdomen: Soft and nontender. Neurologic: Patient is alert. She can move her extremities. There is no tremor. LAB AND X-RAY: The patient's CBC shows a white count of 9860, hemoglobin 8.7, and platelet count 510,000. Creatinine is 2.3. The GFR is 20. As mentioned above, there is no new radiographic study. ASSESSMENT AND PLAN: The patient has a severe Escherichia coli infection including the urinary tract bacteremia and lung. She has had 10 days of treatment with intravenous antibiotics and I plan on treating her for 4 more days with intravenous antibiotics to complete a 14 day treatment course. COMORBIDITIES: Include the fact that she is elderly, she has dementia, congestive heart failure, and a history of alcoholism.
[2016-11-12] MEDS: ELIQUIS PO SCH (08:26)
[2016-11-12] MEDS: LANOXIN PO SCH (08:26)
[2016-11-12] MEDS: MUCINEX PO SCH (08:26)
[2016-11-12] MEDS: LOPRESSOR PO SCH (08:26)
--- NOTE | 2016-11-12 08:59 | PROGRESS NOTE ---
DATE: 11/12/2016 SUBJECTIVE: Patient currently resting in bed. She states that she is to go to rehab later on this morning. OBJECTIVE: Vital Signs: Temperature 98.4 degrees, pulse 94, respiratory rate 22, blood pressure 166/72. Intake was not measured; output 2.9 L. General: This is an elderly female resting in bed. She is awake, alert, and oriented x4. She is in no acute distress. HEENT : Normocephalic, atraumatic. Her oral mucosa is moist. Neck: Supple. There is no JVD noted. Cardiovascular: Regular rate and rhythm. S4. Pulmonary: She has equal excursion. She is clear bilaterally without increased work of breathing. Currently on room air. Abdomen: Soft, with positive bowel sounds. : Not inspected. She is voiding without difficulty. Extremities: She has trace pretibial edema. There is no clubbing or cyanosis. She is moving all extremities and is ambulatory with assistance. Integumentary: Skin is warm and dry without rash or lesion. LAB DATA: WBC of 9.8, hemoglobin 8.7, hematocrit 27.3, platelet count of 510. Sodium 136, potassium 5.1, CO2 27, BUN 31, creatinine 2.3, albumin 2.6. ASSESSMENT AND PLAN: 1. Acute kidney injury secondary to sepsis. She has had continued, but slow improvement to her renal function. We will follow up with her in the next 2 weeks as an outpatient with labs. 2. Fluid overload. This is resolved. She remains in negative fluid territory. 3. Electrolytes, acid-base balance, anemia. These have all been stable. 4. Hypertension. She is controlled on medication. She has not had her morning medications today. Seen, data reviewed, discussed with Armando Albarado on 11/12/16. I agree with the above assessment and plan of care. rg Dictated by PORSHA Juárez for Jordan Estrada MD [facility]
[2016-11-12] MEDS ORDERED: CARDIZEM CD PO SCH (09:00)
[2016-11-12] MEDS: MORPHINE IV PRN (10:40)
--- NOTE | 2016-11-12 11:16 | DISCHARGE SUMMARY ---
ADMISSION DATE: 11/02/2016 DISCHARGE DATE: 11/12/2016 CONSULTATIONS: 1. Dr. Davison with cardiology. 2. Dr. Tj Roth with infectious disease. 3. Dr. Jordan Estrada with nephrology. PERTINENT PROCEDURES: Echocardiogram showed an EF of 40-45%. Renal ultrasound was grossly unremarkable. DISCHARGE DIAGNOSES: 1. Escherichia coli urinary tract infection associated with bacteremia and pneumonia. Patient will continue a 14 day course of intravenous antibiotics. Patient had a total of 10 days. She will complete 4 more. 2. Atrial fibrillation with rapid ventricular response, rate controlled. Patient will continue on Cardizem CD and digoxin as well as Lopressor and Eliquis. 3. Acute kidney injury. Creatinine now stabilized. She will follow up with Dr. Estrada in 2 weeks with lab work. 4. Hyponatremia, stable. Sodium baseline around 131. 5. Constipation. Continue bowel regimen. 6. Generalized weakness. Patient going to [facility]. HOSPITAL COURSE: Briefly, Ms. Saenz is an 81-year-old, female who has a past medical history of congestive heart failure, hypertension, and dementia who was brought to the ED department due to having an increase in shortness of breath and heart racing. In the ED, she was found to be in atrial fibrillation with rapid ventricular response. She was given IV Cardizem and her rate decreased. She somewhat seemed to improved. Her shortness of breath improved. Patient was admitted to [facility] and monitored closely for any fluctuation in her heart rate as well as rechecking an echocardiogram and cardiology consulted for acute congestive heart failure exacerbation. She was gently diuresed. The patient was also started on IV antibiotics for a UTI. She was switched to p.o. Cardizem. Patient was also noted to have an acute kidney injury. They did a renal ultrasound that was normal. The patient's urine culture did start growing gram- negative rods as well as also growing gram-negative rods in the blood. Dr. Roth was consulted for the urosepsis. Dr. Jordan Estrada was consulted for acute kidney injury on chronic kidney disease. He felt this was acute tubular necrosis secondary to urosepsis. Her baseline creatinine was 1.2-1.8. He agreed with gentle hydration with normal saline. The patient's urine and blood cultures grew out E. coli. The patient's antibiotics were switched to Ancef which she will be treated for a 14 day course. The patient's kidney injury progressively improved. It has now stabilized anywhere from 2.3-2.5. Patient's heart rate was controlled with Cardizem and digoxin as well as her beta daniel. She was started on anticoagulation with Eliquis. Patient was able to work with physical therapy. information services consultant was consulted for rehab placement. The patient has chosen [facility] for her rehabilitation option. She has been approved to their facility. The patient will be discharged there today with her peripheral IV and to continue her IV antibiotics for 4 more days. VITAL SIGNS: At the time of discharge, temperature is 98.4 degrees, heart rate 94, respirations 22, blood pressure is 166/72, O2 was 96% on room air. DISCHARGE DIET: Healthy heart with Ensure t.i.d. DISCHARGE MEDICATIONS: 1. Ancef 1 g q.12 hours for the next 4 days. 2. [place] 10/325 one each p.o. p.r.n. 3. Lopressor 50 mg p.o. q.a.m. 4. Remeron 15 mg p.o. at bedtime. 5. Synthroid 100 mcg p.o. daily. 6. Eliquis 2.5 mg p.o. b.i.d. 7. Cardizem CD 240 p.o. daily. 8. Dulcolax 10 mg p.o. at bedtime, hold for diarrhea. 9. Digoxin 125 mcg p.o. daily. 10. Mucinex 600 mg p.o. b.i.d. FOLLOWUP: The patient is being discharged to [facility]. She will need to follow up with Dr. Jordan Estrada in 2 weeks with lab work. She will also need to follow up with Dr. Davison in 1 month. She can follow up with her primary care physician, Dr. Dagoberto Huerta, after rehabilitation. Patient can to return to the ED for any worsening of symptoms. Discharge Time greater than 30 minutes. Dictated by PORSHA Schroeder for Joe Marino MD
[2016-11-12 11:25] VITALS: BP 156/65
== END 2016-11-12 14:00 | DRG 871 ==
LOC: ED 18:19 → EDIPHOLD 21:52 → 3S 11-03 16:36
PROVIDERS: ATTEND Internal Medicine
DX: A41.9 Sepsis, unspecified organism (principal); N18.6 End stage renal disease; N17.9 Acute kidney failure, unspecified; I50.43 Acute on chronic combined systolic (congestive) and diastolic (congestive) heart failure; I27.2 Other secondary pulmonary hypertension; I48.0 Paroxysmal atrial fibrillation; E87.1 Hypo-osmolality and hyponatremia; E86.0 Dehydration; G30.9 Alzheimer's disease, unspecified; N39.0 Urinary tract infection, site not specified; F02.80 Dementia in other diseases classified elsewhere, unspecified severity, without behavioral disturbance, psychotic disturbance, mood disturbance, and anxiety; I13.2 Hypertensive heart and chronic kidney disease with heart failure and with stage 5 chronic kidney disease, or end stage renal disease; R65.20 Severe sepsis without septic shock; F10.20 Alcohol dependence, uncomplicated; G89.29 Other chronic pain; B96.20 Unspecified Escherichia coli [E. coli] as the cause of diseases classified elsewhere; I25.10 Atherosclerotic heart disease of native coronary artery without angina pectoris; K59.00 Constipation, unspecified; E03.9 Hypothyroidism, unspecified; Z87.891 Personal history of nicotine dependence; Z82.49 Family history of ischemic heart disease and other diseases of the circulatory system; Z82.3 Family history of stroke; Z79.899 Other long term (current) drug therapy
CPT/HCPCS: 36569; 71020; 76770; 80048; 80053; 80069; 81001; 82550; 82570; 83735; 83880; 84156; 84300; 84443; 84484; 85025; 85610; 85651; 85730; 86140; 87040; 87045; 87046; 87077; 87088; 87186; 87205; 87324; 87338; 93005; 93010; 93306; 96365; 96366; 96367; 96368; 96375; J0690; J1160; J1644; J1940; J2270; J2543; J3411; J7030; J7040; J7050; P9047; 97116-GP; 97530-GP; 99285-25

== ENCOUNTER 2017-02-12 09:56 | Inpatient (IN) ==
[2017-02-12 11:45] LABS: URINE CULTURE NEEDED? NO; URINE MICRO REVIEW NEEDED? NO; URINE SOURCE CLEAN CATCH
[2017-02-12 11:49] LABS: BILIRUBIN URINE NEGATIVE (NEGATIVE); BLOOD URINE NEGATIVE (NEGATIVE); COLOR STRAW; GLUCOSE URINE NEGATIVE (NEGATIVE); LEUKOCYTES URINE NEGATIVE (NEGATIVE); NITRITE URINE NEGATIVE (NEGATIVE); PROTEIN URINE NEGATIVE (NEGATIVE); SP GRAVITY URINE 1.004; TURBIDITY URINE CLEAR (CLEAR); UROBILINOGEN URINE NORMAL (NORMAL)
[2017-02-12 11:50] LABS: UR EPITHELIAL CELLS <10 /HPF (<10); URINE BACTERIA NEGATIVE /HPF; URINE RBC <10 /HPF (<10); URINE WBC <10 /HPF (<10)
--- NOTE | 2017-02-12 11:50 | Diag Imaging Result Doc PS360 ---
EXAM: CHEST-PORTABLE HISTORY: abnormal lab TECHNIQUE: COMPARISON: 11/07/2016 FINDINGS: The lungs are well expanded. The heart is not enlarged. The pulmonary vessels are small. No consolidation. No pleural effusions identified. IMPRESSION: Interval clearing of the prior infiltrates and atelectasis. Electronically signed by Americo Albarran 02/12/2017 11:48 AM
[2017-02-12 11:55] LABS: BASO% 0.1 % (0.0-0.8); EOS# 0.15 X1000 (0.0-0.7); HEMATOCRIT 17.9 % (37.0-47.0); HEMOGLOBIN 5.5 g/dL (12.0-16.0); IMM GRAN# 0.02 X1000 (0.0-0.04); IMM GRAN% 0.3 % (0.0-0.5); LYMPH% 16.2 % (20.5-51.1); MANUAL DIFF NEEDED? YES; MCH 27.8 PG (27-31); MCHC 30.7 g/dL (33-37); MCV 90.4 FL (81-99); MONO# 0.46 X1000 (0.11-0.59); MONO% 6.2 % (1.7-9.3); MPV 8.4 FL (7.4-10.4); NEUT% 75.2 % (42.2-75.2); PLT 375 X1000 (130-400); RBC 1.98 XMIL (4.2-5.4)
[2017-02-12 12:06] LABS: INR 1.11; PROTIME 11.7 Seconds (9.2-11.7)
[2017-02-12 12:15] LABS: ALBUMIN 3.7 g/dL (3.5-5.0); CALCIUM 8.6 mg/dL (8.8-10.2); POTASSIUM 4.7 mmol/L (3.5-5.1); TOTAL BILIRUBIN 0.36 mg/dL (0.20-1.00); TOTAL PROTEIN 6.7 g/dL (6.3-8.3)
[2017-02-12] MEDS ORDERED: NS 500 ML ONE (12:26)
--- NOTE | 2017-02-12 14:02 | HISTORY AND PHYSICAL ---
PRIMARY CARE PHYSICIAN: Dr. Dagoberto Huerta CHIEF COMPLAINT: Abnormal labs. HISTORY OF PRESENT ILLNESS: Ms. Saenz is an 81-year-old female with a history of advanced dementia, CKD, and paroxysmal atrial fibrillation and others, who presents at the request of Dr. Dagoberto Huerta for profound anemia. The patient has been feeling weak which has been getting progressively worse over the past few weeks. At the beginning of the month her granddaughter, who is her power of tax attorney, took her to [facility], blood work at that time showed moderate anemia with a hemoglobin of 9.9 and hematocrit of 30.4. Since that time, her weakness has gotten progressively worse and over the past 1 week or so she has been essentially bed-bound with her weakness. Her granddaughter also noted that her lips have been getting quite pale. They went to Dr. Dagoberto Huerta earlier this week and had blood work drawn. Yesterday, he called them and said that she needed to come to the ER because her hemoglobin has gotten dangerously low. Indeed, it was measured at 5.2, thus indicating a 4.7 drop in 3 weeks time. Patient is unable to give any type of real history secondary to her mental status, family at the bedside reports that she has not had any bloody stool or melena. There has been no hematemesis. In fact, with the exception of the weakness, there has really been no other acute complaints. There has been no fever, chills, cough, congestion, no abdominal pain, nausea, vomiting or diarrhea and no lower extremity weakness. Repeat labs today confirm that her hemoglobin is 5.5. She does have some mild renal insufficiency but otherwise her laboratory data is unremarkable, chest x-ray is negative. We are going to admit her for further treatment and evaluation. Gastroenterology has been consulted and blood has been ordered to be transfused. PAST MEDICAL HISTORY: 1. Advanced dementia. 2. Mild congestive heart failure with EF of 45%. Done in October of this year. 3. Paroxysmal atrial fibrillation on digoxin and Eliquis. 4. Hypertension. 5. Hyperlipidemia. 6. Apparent history of alcohol. 7. Fairly recent history of bacteremia and pneumonia and UTI in October of this year. 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 ALLERGIES: No known drug allergies. HOME MEDICATIONS: Eliquis 2.5 mg p.o. b.i.d., digoxin 125 mg p.o. daily. Cardizem CD 240 mg p.o. daily. [place] as needed for pain. Synthroid 88 mcg daily. Mobic 15 mg daily, Lopressor 50 mg a.m., Remeron 15 mg p.o. at bedtime. REVIEW OF SYSTEMS: Unable to be obtained. PHYSICAL EXAMINATION: VITAL SIGNS: Blood pressure is 139/68. Heart rate 70, respiratory rate 18, O2 saturation 90% on room air. Temperature is 98.3 degrees. GENERAL: This is an elderly and chronically disheveled-appearing 81-year-old, female, lying in a hospital bed in no acute distress. NEUROLOGIC: The patient is awake and alert but she is confused. She follows commands without focal deficits. HEENT: Head is atraumatic, normocephalic. Pupils are equal, round, and reactive to light. Oral mucosa is dry and pale. Conjunctiva are pale. NECK: Supple and soft. Trachea is midline. CHEST: Clear to auscultation bilaterally. CARDIOVASCULAR: Regular rate and rhythm. S1-S2 is noted. No murmurs, gallops , clicks, or rubs. GASTROINTESTINAL: Soft, nondistended, nontender. Bowel sounds are positive. EXTREMITIES: No edema, clubbing or cyanosis. Pulses are diminished but palpable bilaterally. DIAGNOSTIC DATA: Chest x-ray is negative. WBC 7.4, hemoglobin 5.5, hematocrit 17.9, platelet count 375,000. INR 1.11, sodium 135, potassium 4.7, chloride 97, CO2 25, anion gap 18, BUN 18 and creatinine 1.5. Glucose is 101, calcium 8.6. LFTs within normal limits. Albumin 3.7. UA is negative. ASSESSMENT/PLAN: 1. Profound anemia: Given the acute drop we will presume GI loss. She is going to be held NPO. We will add some mild IV fluid hydration. Consult GI. We will also start her on IV Protonix. 2. Acute blood loss anemia: She is being transfused with 2 units of PRBCs now. We will check iron studies. Continue to trend her hemoglobin and hematocrit, we will also check thyroid function. 3. Chronic kidney disease: Creatinine 1.5 which seems to be around her baseline. We will withhold any nephrotoxic medications and trend her creatinine on a daily basis. 4. Hypertension: Chronic and stable, continue medications from home that are not nephrotoxic and we will IV p.r.n. if necessary. 5. Paroxysmal atrial fibrillation: Sinus rhythm currently. We will continue her metoprolol, digoxin and Cardizem. Also check digoxin level. Obviously we are going to withhold her Eliquis at this time. 6. Apparent history of alcohol dependence: We will monitor for signs of delirium tremens or withdrawal, the patient and family deny any alcohol abuse. 7. Deep venous thrombosis prophylaxis with SCDs and TEDs given her likely bleed. Further recommendations to follow. Dictated by PORSHA Eden for Derek Dm Sommer MD cc: MD Malcom Rapp CRNP Addendum: I personally evaluated and examined the patient in conjunction to the COPY CLERK and agreed with his assessments and plans. She is very pale-looking. Granddaughter was at the bedside. All questions were invited and entertained. CESAR
--- NOTE | 2017-02-12 14:28 | EKG Report ---
Test Performed on : 02/12/2017 12:37:48 PM Test Reason : h/o afib rvr Blood Pressure : / mmHG Vent. Rate : 064 BPM Atrial Rate : 064 BPM P-R Int : 172 ms QRS Dur : 110 ms QT Int : 422 ms P-R-T Axes : 078 -28 035 degrees QTc Int : 435 ms Normal sinus rhythm. Septal infarct (cited on or before 07-NOV-2016) Abnormal ECG When compared with ECG of 10-NOV-2016 04:20, T wave amplitude has increased in Lateral leads QT has lengthened Unconfirmed Result
[2017-02-12 15:03] LABS: RETIC% 3.63 % (0.8-2.1)
[2017-02-12 15:16] LABS: DIGOXIN 0.4 ng/mL (0.9-2.0); MAGNESIUM 2.2 mg/dL (1.5-2.7)
[2017-02-12 15:17] LABS: IRON SATURATION 3 %; TIBC 345 ug/dL; TOTAL IRON 12 ug/dL (49-151); UNBOUND IRON 333 ug/dL (112-346)
[2017-02-12 15:35] LABS: HEMOGLOBIN A1C 4.9 % (4.8-6.0)
[2017-02-12 15:43] LABS: FREE T4 1.98 ng/dL (0.93-1.70)
--- NOTE | 2017-02-12 16:24 | CONSULTATION ---
DATE OF CONSULTATION: 02/12/2017 REASON FOR REFERRAL: Severe anemia. HISTORY OF PRESENT ILLNESS: This is an 81-year-old, white female with a history of dementia, chronic kidney disease, atrial fibrillation, who presented to Dr. Huerta's office due to extreme weakness. She was found to have severe anemia. Information is obtained from the granddaughter who has power of patent prosecution attorney. She states she was in the hospital in October for urosepsis. She did fairly well after discharge but about 3 weeks ago she started having significant weakness and fatigue. She has not been able to eat much. She had a fever of 101. She took her to [facility] because Dr. Huerta was unable to see her that day and she was treated for a urinary tract infection. When she followed up with Dr. Huerta, she was found to have severe anemia. The patient states when she was seen at [facility], her hemoglobin and hematocrit was 9.9 and 30.4, and then when she went back to see Dr. Huerta she had a significant drop to hemoglobin of 5.2. Per the granddaughter and the patient, they deny any visible blood in the stool or black stools. The patient reports having a colonoscopy over 10 years ago. She is not sure if she has ever had an EGD. She does report some dizziness, occasional chest pain, occasional shortness of breath with exertion. She has a history of atrial fibrillation, and the granddaughter states she was placed on Eliquis in November by Dr. Davison, her employment office clerk. She reports that she has also been taking Mobic daily for arthritis. PAST MEDICAL HISTORY: dementia, congestive heart failure, paroxysmal atrial fibrillation on digoxin and Eliquis, hypertension, hyperlipidemia, history of urosepsis in the hospital in October. PAST SURGICAL HISTORY: hysterectomy, appendectomy, left side lymph nodes removed from the axillary and neck area that were found to be benign. ALLERGIES: No known drug allergies. HOME MEDICATIONS: 1. Meloxicam 15 mg every morning. 2. [place] 10/325 as needed. 3. Diltiazem CD 240 mg daily. 4. Digoxin 125 mcg daily. 5. Eliquis 2.5 mg twice daily 6. Remeron 15 mg every night. 7. Lopressor 50 mg every morning. 8. Levothyroxine 0.1 mg daily. SOCIAL HISTORY: She lives with her . Her granddaughter has power of patent prosecution attorney. REVIEW OF SYSTEMS: Per HPI. PHYSICAL EXAM: Vital Signs: Temperature 98.0 degrees, pulse 63, respirations 14, blood pressure 145/57. General: Generally, patient is awake and alert. No acute distress. She follows commands. HEENT: Normocephalic, atraumatic. Pupils equal, round, reactive to light. Conjunctiva are pale. Respiratory: Lung sounds clear bilaterally. Cardiovascular: Regular rate and rhythm. Abdomen: Soft. Nontender. Positive bowel sounds. Extremities: No lower extremity edema noted. DIAGNOSTIC RESULTS: Hematology: White count 7.40, hemoglobin 5.5, hematocrit 17.9, MCV 90.4, platelet 375. Coagulation: Pro time 11.1, INR 1.11. Chemistry: Sodium 135, potassium 4.7, chloride 97, CO2 25, BUN 18, creatinine 1.5, glucose 101, calcium 8.6, magnesium 2.2. Iron 12, TIBC 345, percent saturation 3, ferritin 14. Total bilirubin 0.36, AST 12, ALT 7, alkaline phosphatase 63, TSH is 0.09. ASSESSMENT: 1. Profound anemia. 2. Questionable gastrointestinal blood loss. 3. Chronic kidney disease. 4. Hypertension. 5. Atrial fibrillation on Eliquis. 6. Arthritis on Mobic. 7. Dementia. PLAN: Monitor serial hemoglobin and hematocrit levels. She has orders to receive packed red blood cells. Transfuse as ordered. Monitor for any active bleeding. Plan for EGD and colonoscopy. Procedure will be scheduled for Friday. Since she has been on Eliquis, we will hold Synata. Further plans will be made according to findings. I have discussed the EGD and colonoscopy procedure with the patient and her granddaughter who has power of patent prosecution attorney. They wish to proceed. Further plans will be made according to findings. I have discussed this case with Dr. Lopez. Thank you for this consultation. Dictated by PORSHA Thomason for Ezequiel Lopez MD cc: PORSHA Smith MD [facility]
[2017-02-12] MEDS: NORCO-10 PO PRN (18:38)
--- NOTE | 2017-02-12 18:58 | PROVIDER DOCUMENTATION ---
This chart was entered by Xochitl Gonzalez Scribe, acting as scribe for Benji Lange MD. HPI-General Adult - General Chief Complaint: Abnormal Lab[s] Stated Complaint: ABNORMAL LABS Time Seen by Provider: 02/12/17 10:45 Source: patient Allergies/Adverse Reactions: Patient Allergies Allergy/AdvReac Type Severity Reaction Status Date / Time No Known Allergies Allergy Verified 02/12/17 11:32 Home Medications: Home Medication List Medication Instructions Recorded Confirmed Last Taken Type Hydrocodone/Acetaminophen [Strawn 1 each PO Q6-8H PRN PRN 09/27/15 02/12/17 1 Day Ago History 10-325 Tablet] Levothyroxine [Synthroid] 0.1 mg PO DAILY 09/27/15 02/12/17 1 Day Ago History Metoprolol [Lopressor] 50 mg PO QAM 09/27/15 02/12/17 1 Day Ago History Mirtazapine [Remeron] 15 mg PO QHS 09/27/15 02/12/17 1 Day Ago History Digoxin [Lanoxin] 125 microgm PO DAILY #30 tablet 11/12/16 02/12/17 1 Day Ago Rx Diltiazem C.d. [Cardizem Cd] 240 mg PO DAILY #30 capsule 11/12/16 02/12/17 1 Day Ago Rx Pantoprazole [Protonix] 40 mg PO BID #60 tablet 02/15/17 Unknown Rx Polyethylene Glycol 3350 [Miralax] 17 gm PO DAILY #1 powd.pack 02/15/17 Unknown Rx - History of Present Illness -Gen Adult Nature of Presenting Problems: Pt is 81 y/o F presents to the ED with generalized weakness. Pt's family member states Pt has not been feeling well for 2 mths. Pt's family member states taking Pt to PCP and PCP vaishali labs and Pt's H&H was low. Pt's family member states PCP said to take Pt to ED. Location of Pain/Injury: reports: generalized Pain Radiation: reports: no radiation Quality of Pain: reports: aching Severity: reports: mild Onset/Duration: reports: other (2 mths) Timing: reports: still present Context/Activities at Onset: reports: light activity Modifying Factors: improves with: nothing Associated Symptoms: reports: weakness. denies: anxiety, arm pain, back/neck pain, chest pain, constipation, cough, diaphoresis, diarrhea, dizziness, EENT symptoms, fatigue, fever/chills, genitourinary problems, headaches, heartburn, joint pain, loss of appetite, malaise, muscle aches, sinus congestion/drainage, nausea, rash, seizure, shortness of breath, sensory/motor loss, pain with inspiration, swelling/mass in abdomen, syncope, vomiting, trouble walking Similar Symptoms Previously?: Yes Recently seen or treated by another doctor?: Yes Review of Systems - Adult - REVIEW OF SYSTEMS - ADULT Constitutional: reports: no symptoms reported Eyes: reports: no symptoms reported Ears, Nose, Mouth & Throat: reports: no symptoms reported Cardiovascular: reports: no symptoms reported Respiratory: reports: no symptoms reported Gastrointestinal: reports: no symptoms reported Genitourinary: reports: no symptoms reported Musculoskeletal: reports: muscle weakness. denies: bone pain, joint pain, neck pain Integumentary: reports: no symptoms reported Neurological: reports: no symptoms reported Psychiatric: reports: no symptoms reported Endocrine: reports: no symptoms reported Hematologic/Lymphatic: reports: no symptoms reported Allergic/Immunologic: reports: no symptoms reported All Other Systems: Reviewed and Negative Past History - Adult - PAST MEDICAL HISTORY-ADULT Review of Records: reports: Nursing Assessment Review, Medications Reviewed, Social history reviewed & non-contributory. Major Childhood Illnesses: reports: denies history Cardiovascular: reports: HTN Respiratory: reports: denies history Gastrointestinal: reports: denies history Obstetrical/Gynecological: reports: denies history Genitourinary: reports: denies history Musculoskeletal: reports: chronic pain Neurological: reports: Alzheimer's, dementia, TIA Endocrine/Immune: reports: thyroid disorder Other Conditions: reports: denies history - PRIOR SURGERIES/PROCEDURES Surgical/Procedure History: reports: none - IMMUNIZATION STATUS Childhood Immunizations: See Nurse Assessment Flu Vaccine: See Nurse Assessment - FAMILY HISTORY Family History: reviewed, not pertinent - SOCIAL HISTORY Smoking: quit greater than 1 year, cigarettes Substance Use: denies Living Situation: family Physical Exam-General - PHYSICAL EXAM-ADULT Initial Vital Signs Reviewed: Yes - CONSTITUTIONAL General Appearance: alert, no apparent distress - EYES Eyes: PERRL/EOMI, pink conjunctivae - HEAD, EARS, NOSE, MOUTH & THROAT HENMT: normocephalic/atraumatic, moist mucous membranes, normal ENT inspection - NECK Neck: supple, normal inspection - RESPIRATORY Respiratory: chest non-tender, lungs clear, normal breath sounds - CARDIOVASCULAR Cardiovascular: normal peripheral pulses, regular rate, rhythm, no edema - GASTROINTESTINAL (ABDOMEN) Abdominal Exam: normal bowel sounds, non tender, soft - LYMPHATIC Lymphatic: no adenopathy - MUSCULOSKELETAL Back Exam: normal inspection, no CVA tenderness, no vertebral tenderness Extremity: normal range of motion, non-tender - SKIN Integumentary: normal turgor, warm/dry, pallor - NEUROLOGIC Neurologic: grossly normal - PSYCHIATRIC Psych/Mental Status: normal mood/affect, other (confused) Progress - PLAN OF CARE/RESULTS Progress/Plan/Lab Results: Vital Signs - 8 hr 02/12/17 10:14 Temperature 98.3 F Pulse Rate 70 Respiratory Rate 18 Blood Pressure 139/68 O2 Sat by Pulse Oximetry 90 L Result Diagrams: 02/15/17 05:32 02/15/17 05:32 - EKG 1 Time of EKG reading by physician:: 12:37 EKG Read and Signed by:: Benji Lange EKG Interpretation (*Must complete 3 of following elements*): Abnormal Rate: 64 Rhythm: normal sinus rhythm Comments: septal infarct, age undetermined - XRAY 1 XRAY Study: Chest Impression: Abnormal XRAY Interpretation: interval clearing of the prior infiltrates and atelectasis - CONSULTS/PCP/HOSPITALIST Notification Consult Disposition: other Departure - Departure Date of Disposition Decision: 02/12/17 Time of Disposition Decision: 11:33 DIAGNOSIS: Anemia Qualifiers: Anemia type: iron deficiency Iron deficiency anemia type: chronic blood loss Qualified Code(s): D50.0 - Iron deficiency anemia secondary to blood loss ( chronic) Disposition: ADMITTED INPATIENT 09 Certified Medical Emergency: Emergent Condition: Stable - Critical Care Note This patient required my direct & personal management of CC.: No This chart was documented by the indicated scribe, (Xochitl Gonzalez Scribe) and accurately reflects the services I performed and decisions made by me, Benji Lange MD, as attested by the provider's signature.
[2017-02-12] MEDS: REMERON PO SCH ×2 (19:52→21:24)
[2017-02-13] MEDS: NORCO-10 PO PRN ×4 (00:23→23:45)
[2017-02-13 05:51] LABS: HEMATOCRIT 30.7 % (37.0-47.0); HEMOGLOBIN 10.3 g/dL (12.0-16.0); MCH 28.7 PG (27-31); MCHC 33.6 g/dL (33-37); MCV 85.5 FL (81-99); MPV 9.1 FL (7.4-10.4); RBC 3.59 XMIL (4.2-5.4)
[2017-02-13 06:05] LABS: CALCIUM 8.3 mg/dL (8.8-10.2); POTASSIUM 4.8 mmol/L (3.5-5.1)
[2017-02-13] MEDS: CARDIZEM CD PO SCH (08:46)
[2017-02-13] MEDS: LOPRESSOR PO SCH (08:46)
[2017-02-13] MEDS: LANOXIN PO SCH (08:46)
[2017-02-13] MEDS: SYNTHROID PO SCH (08:46)
--- NOTE | 2017-02-13 13:10 | PROGRESS NOTE ---
DATE: 02/13/2017 SUBJECTIVE: The patient is feeling well. No acute event reported. Resting comfortably in bed. Denies having any shortness of breath. OBJECTIVE: Vital signs: Blood pressure 145/51, pulse of 49, respirations 16, temperature 98.5 degrees, satting 99% on room air. General appearance: Thin, white female in no acute distress. HEENT: Anicteric sclerae. Clear conjunctivae. Neck: Supple. No JVD. No bruit. Cardiovascular: S1, S2. Normal rate and rhythm. No murmur, rubs, or gallops. Pulmonary: Clear to auscultation bilaterally. GI: Soft, nontender, nondistended. Normoactive bowel sounds. Musculoskeletal: No clubbing, cyanosis, or edema. LABORATORY: White count of 7.82, hemoglobin 10.3, hematocrit of 30.7, platelets of 273. Chemistry: Sodium 134, potassium 4.8, chloride 99, bicarbonate 24, BUN 20, creatinine 1.4, glucose 81. ASSESSMENT AND PLAN: This is an 81-year-old, white female admitted to the hospital for symptomatic anemia. 1. Symptomatic anemia, probably secondary to acute bleeding. The patient is on aspirin and Eliquis for her atrial fibrillation. We have held her Eliquis and aspirin. Gastroenterology was consulted and plan to do endoscopy and possible colonoscopy to follow. 2. History of atrial fibrillation with rapid ventricular response. Rate is under control with diltiazem and digoxin, as well as Lopressor. 3. Failure to thrive. Continue Remeron. 4. Dementia. No change. 5. Hypothyroidism. Continue Synthroid.
[2017-02-13] MEDS ORDERED: GOLYTELY PO ONE (14:00)
[2017-02-13] MEDS: REMERON PO SCH (22:24)
[2017-02-14 06:53] LABS: HEMATOCRIT 34.8 % (37.0-47.0); HEMOGLOBIN 11.4 g/dL (12.0-16.0); MCH 28.6 PG (27-31); MCHC 32.8 g/dL (33-37); MCV 87.4 FL (81-99); MPV 9.2 FL (7.4-10.4); RBC 3.98 XMIL (4.2-5.4)
[2017-02-14 07:29] LABS: CALCIUM 8.4 mg/dL (8.8-10.2); POTASSIUM 3.9 mmol/L (3.5-5.1)
[2017-02-14] MEDS: CARDIZEM CD PO SCH (08:03)
[2017-02-14] MEDS: LANOXIN PO SCH (08:04)
[2017-02-14] MEDS: SYNTHROID PO SCH (10:11)
[2017-02-14] MEDS: LOPRESSOR PO SCH (10:11)
--- NOTE | 2017-02-14 14:36 | PROGRESS NOTE ---
DATE: 02/14/2017 SUBJECTIVE: Patient is very hungry. She is waiting for the esophagogastroduodenoscopy and colonoscopy today. OBJECTIVE: Vital Signs: Blood pressure is 145/53, pulse of 51, respirations 20, temperature 97.6 degrees, saturations of 100% on 2 L nasal cannula. General Appearance: Thin, white female in no acute distress. HEENT: Anicteric. Clear conjunctivae. Neck: Supple. No JVD. No bruit. Cardiovascular: S1, S2. Normal rate and rhythm. No murmur, rubs, or gallops. Pulmonary: Clear to auscultation bilaterally. GI: Soft, nontender, nondistended. Normoactive bowel sounds. Musculoskeletal: No clubbing, cyanosis, or edema. LABORATORY: White count 7.27, hemoglobin 11.4, hematocrit of 34.8, platelets 314,000. Chemistry: Sodium 132, potassium 3.9, chloride 96, bicarb 24, BUN 13, creatinine 1.2, glucose of 77. ASSESSMENT AND PLAN: This is a 81-year-old admitted to the hospital for symptomatic anemia. 1. Symptomatic anemia, probably secondary to gastrointestinal bleed. The patient received blood transfusion and we held her Eliquis and aspirin. We are probably going to stop her Eliquis. Risks and benefits have been assessed. I think risks outweigh the benefits if she stays on Eliquis due to the bleeding. 2. History of atrial fibrillation. We will continue rate control for now with digoxin and Lopressor, as well as on Cardizem and Synthroid. 3. Hypothyroidism. Continue Synthroid. 4. Failure to thrive. Continue Remeron. 5. Code Status. The patient is a full code.
[2017-02-14] MEDS: PRILOSEC PO SCH ×2 (15:03→21:36)
[2017-02-14] MEDS ORDERED: DIPRIVAN 1% ONE (15:39)
--- NOTE | 2017-02-14 15:43 | OPERATIVE NOTE ---
PROCEDURE DATE: 02/14/2017 PROCEDURES PERFORMED: 1. Esophagogastroduodenoscopy, biopsies. 2. Colonoscopy. MEDICATION USED: MAC, as per Anesthesia. SCOPES USED: Olympus GIF-HQ190 and CF-HQ190. PREOPERATIVE DIAGNOSIS: Profound anemia. POSTOPERATIVE DIAGNOSES: 1. Gastric ulcer. 2. Diverticulosis coli. HISTORY: This 81-year-old lady with dementia was admitted to the hospital with profound anemia. She did not have any overt signs of GI bleeding; however, she has been on Eliquis. EGD and colonoscopy were done to identify the etiology of her anemia and treat accordingly. DESCRIPTION OF PROCEDURE: Informed consent was obtained from the patient. The procedure, risks, benefits, and alternatives were explained in layman's terms. She understood. The family was also explained the procedure. Consent was obtained from both. They understood and agreed. The patient was brought to the endoscopy unit and was premedicated as per Anesthesia. After adequate sedation, while she was lying in left lateral position, the gastroscope was introduced into the posterior pharynx and advanced under direct vision into the esophagus. The esophagus in its entire length appeared to be normal. No esophagitis, webs, rings, or varices were seen. The GE junction was noted at about 40 cm from the incisors. The scope was passed through the esophagus into the stomach. The stomach was examined in both straight and retroflexed view, which revealed a large ulcer in the antrum on the inferior aspect. The ulcer was deep, punched out, without any stigmata of recent bleed. I did not see any visible vessel. Multiple biopsies were obtained from the ulcer edges. The scope was then passed through the normal pylorus, into the duodenal bulb and then the 2nd part of the duodenum. Both appeared to be normal. The scope was withdrawn. The patient was then repositioned for colonoscopy. Digital rectal exam was performed, which was normal. The scope was then gently introduced into the rectum and advanced under direct vision through the parts of colon, all the way up to the cecum. The cecum was identified by the ileocecal valve and appendiceal orifice. The scope was withdrawn, paying attention to details. Preparation was fair. There was some particulate matter scattered throughout the colon, most likely from the diverticula. The scope was withdrawn, paying attention to detail. Preparation was fair. There was some particulate matter scattered throughout the colon, most likely fecaliths from the diverticula. The visualized portion of the colon revealed diverticula scattered throughout the colon, but mild throughout the colon except for the sigmoid colon, which they were numerous. The visualized portion did not reveal any polyps, tumors, or cancers. No evidence of active bleeding or stigmata of recent bleed. The rectum was examined with straight and retroflexed view, which revealed no pathology either. The scope was then removed. Patient tolerated the procedure well. No complication was noted. Patient was then transferred to the recovery area in a stable condition. IMPRESSIONS: 1. Gastric ulcer, deep, biopsied. 2. Diverticulosis coli. RECOMMENDATIONS: Patient will be started on double-dose proton pump inhibitor. I would recommend to hold off anticoagulation for at least a week or 2, and then resume with caution for some high risk of bleeding. In the meantime, start full liquid diet. Check serial hemoglobin and hematocrit, and transfuse if necessary. Once stabilized, she can be discharged to be followed up at the office. She will need a repeat EGD in 3-4 months to confirm healing. Recommend MiraLAX 17 g in a glass of water or juice every day. cc: MD Dagoberto Wills MD
[2017-02-14] MEDS: NORCO-10 PO PRN (17:50)
[2017-02-14] MEDS: PERIDEX MT SCH (21:36)
[2017-02-14] MEDS: REMERON PO SCH (21:36)
[2017-02-15 06:02] LABS: HEMOGLOBIN 11.1 g/dL (12.0-16.0); MCHC 32.6 g/dL (33-37); MCV 88.8 FL (81-99); MPV 8.9 FL (7.4-10.4); RBC 3.83 XMIL (4.2-5.4)
[2017-02-15 06:34] LABS: CALCIUM 8.5 mg/dL (8.8-10.2); POTASSIUM 4.2 mmol/L (3.5-5.1)
[2017-02-15] MEDS: PERIDEX MT SCH (08:27)
[2017-02-15] MEDS: PRILOSEC PO SCH (08:27)
[2017-02-15] MEDS: SYNTHROID PO SCH (08:28)
[2017-02-15] MEDS: CARDIZEM CD PO SCH (08:33)
[2017-02-15] MEDS: LANOXIN PO SCH (08:33)
[2017-02-15] MEDS: LOPRESSOR PO SCH (08:34)
[2017-02-15] MEDS: NORCO-10 PO PRN (08:47)
[2017-02-15 13:29] VITALS: BP 129/64
--- NOTE | 2017-02-15 14:05 | DISCHARGE SUMMARY ---
ADMISSION DATE: 02/12/2017 DISCHARGE DATE: 02/15/2017 PRIMARY CARE PHYSICIAN: Dr. Dagoberto Huerta. DISCHARGE DIAGNOSES: 1. Upper gastrointestinal bleed. 2. Gastric ulcer. 3. History of atrial fibrillation. 4. Dementia. 5. Failure to thrive. 6. Hypothyroidism. DISCHARGE MEDICATIONS: 1. [place] 10 q.6 h. p.r.n. for pain. 2. Cardizem 240 daily. 3. Digoxin 125 mcg p.o. daily. 4. Remeron 15 mg at bedtime. 5. Lopressor 50 mg each morning. 6. Synthroid 0.1 mg p.o. daily. 7. Protonix 40 mg p.o. b.i.d. CONSULTATIONS: Dr. Lopez was consulted for upper GI bleed. PROCEDURES: Endoscopy: She was found to have a large, clean-based gastric ulcer. SIGNIFICANT LABORATORY AND IMAGING: White count 6.51, hemoglobin 11.1, hematocrit 34.0, platelets 312. Chemistry: Sodium 137, potassium 4.2, chloride 99, bicarbonate 27, BUN 8, creatinine 1.2, glucose 78. HOSPITAL COURSE: The patient is a 81-year-old white female with a history of dementia and arthritis admitted to the hospital for anemia. The patient was symptomatic. Although she denied having any blood in her stool, the patient has moderate dementia according to her granddaughter, and was unable to give us a whole lot of history. At any rate, when she came in, her hemoglobin and hematocrit were 5.5 and 17.9. The patient was given so far a units of packed red blood cells, and her hemoglobin and hematocrit have been up and have remained stable after the blood transfusion. Dr. Lopez took her to the GI lab and did the endoscopy, and she was found to have nonbleeding ulcer, and he recommended to put the patient on Protonix twice a day and held her Eliquis for 2 weeks and aspirin for about a month, and he will see her back in the office in a couple of weeks. The patient is otherwise doing well. She is tolerating p.o. without any difficulty. Her hemoglobin and hematocrit are stable. She tolerated diet. She did not have any pain. From my standpoint, the patient can go home. PHYSICAL EXAM ON DISCHARGE: At discharge, her vital signs are blood pressure 160/58, pulse of 54, respirations 18, temperature of 98.5, satting 100% on room air. General appearance: Well- developed, well-nourished white female in no acute distress. HEENT: Anicteric. Clear conjunctivae. Neck: Supple, no JVD, no bruits. Cardiovascular: S1, S2, normal rate and rhythm, no murmur, rubs, nor gallop. Pulmonary: Clear to auscultation bilaterally. GI: Soft, nontender, nondistended, normoactive bowel sounds. Musculoskeletal: No clubbing, cyanosis, or edema. PLAN: Will discharge the patient home. CONDITION: Stable and improving. ACTIVITY: As tolerated. FOLLOWUP: The patient can follow with her PCP in 1-2 weeks and follow up with Dr. Lopez in 2-4 weeks. Total time discharge this patient was 35 minutes. cc: Dagoberto Huerta MD
== END 2017-02-15 13:38 | disposition home or self-care (01) ==
LOC: ED 09:56 → 4N 13:02
PROVIDERS: ATTEND Internal Medicine